=== PATIENT | male | born 1945 | race Caucasian/White ===

== ENCOUNTER → 2016-12-14 | Outpatient (CLI) | payer OTHER ==
[~2016-12-14] MED LIST: ASPI81TA28 PO; CIPR-255 PO; CLOP1TAB5 PO; FINA5TAB PO; FLM4 PO; FLUT0.0529; INSDGI SC; INSDGI SQ; IPRA0.037 NAE; LPT40 PO; LSN20 PO; METF1TAB53 PO; METO1TAB66 PO; MULTCHW PO; MXZC25 PO; OMEP40CA PO; OMEP40CA41 PO; OXYC-57 PO
[2016-12-14 13:05] LABS: BLOOD UREA NITROGEN 20 mg/dl (7-18); CALCIUM 8.7 mg/dl (8.5-10.1); CARBON DIOXIDE 25 mmol/L (21-32); CHLORIDE 105 mmol/L (98-107); CHOLESTEROL 135 mg/dl (0-200); GLUCOSE 117 mg/dl (70-99); POTASSIUM 4.2 mmol/L (3.5-5.1); SODIUM 140 mmol/L (136-145); TRIGLYCERIDES 114 mg/dl (0-150); VERY LOW DENSITY LIPOPROT CALC 23 mg/dl
[2016-12-14 13:08] LABS: CHOLESTEROL/HDL RATIO 3.1; HDL CHOLESTEROL 43 mg/dl
[2016-12-14 13:29] LABS: ESTIMATED AVERAGE GLUCOSE 160 mg/dl; HA1C FLAG Normal (Normal)
[2016-12-14 14:00] LABS: RATIO 256.9 mcg/mg (0-30.0)
== END | disposition home or self-care (01) ==
LOC: C.LABSPEC 12:25
PROVIDERS: ATTEND Internal Medicine
DX: E66.09 Other obesity due to excess calories (principal); E78.5 Hyperlipidemia, unspecified; I25.10 Atherosclerotic heart disease of native coronary artery without angina pectoris; E11.65 Type 2 diabetes mellitus with hyperglycemia; I10 Essential (primary) hypertension

== ENCOUNTER → 2017-01-09 | Outpatient (CLI) | payer OTHER | END | disposition home or self-care (01) | LOC: C.LABSPEC 18:07 | PROVIDERS: ATTEND Urology | DX: N40.1 Benign prostatic hyperplasia with lower urinary tract symptoms (principal) ==

== ENCOUNTER 2017-01-14 18:19 | Emergency (ER) | payer OTHER ==
[~2017-01-14] VITALS: Ht 182.9 cm; Wt 126.7 kg
[~2017-01-14 18:19] MED LIST changes: -OMEP40CA41 PO
[2017-01-14 18:24] VITALS: BP 133/91; PULSE 73; TEMP 36.8; O2SAT 95; Ht 182.9 cm; Wt 126.7 kg
[2017-01-14] MEDS ORDERED: OXYCODONE HCL IR 5 MG TAB (IMMEDIATE RELEASE) PO STA (18:26)
--- NOTE | 2017-01-14 18:29 | EMERGENCY ROOM VISIT NOTE ---
History Report prepared by Jefry: Mani Fowler Under the Supervision of: Dr. Roly Potter D.O. First contact with patient: 18:20 Chief Complaint: KNEEPAIN Stated Complaint: KNEE PAIN, ANKLE NUMBNESS, FALL History of Present Illness The patient is a 71 year old male who presents to the Emergency Room with complaints of right knee pain since a fall earlier this afternoon. The pain is excruciating and has worsened since the initial fall. The pain is exacerbated by movement. The patient also notes increased swelling around the knee. The patient [place] when he slipped and bent the right knee backwards. The patient has had the right knee replaced twice by [facility].. He has had accidents like this before but the pain does not usually last this long. The patient recently had surgery for BPH. He denies tobacco or alcohol use. Source of History: patient Onset: earlier this afternoon Position: knee (right) Symptom Intensity: excruciating Timing: worsening Modifying Factors (Worsening): movement Review of Systems See HPI for pertinent positives & negatives. A total of 10 systems reviewed and were otherwise negative. Past Medical & Surgical Medical Problems: (1) Aseptic Loosening TKR (2) Diabetes mellitus (3) Heart disease (4) Hypertension Family History No pertinent family history Social History Smoking Status: Never Smoker Marital Status: Housing Status: lives with family Current/Historical Medications Scheduled Aspirin (Aspirin Ec), 81 MG PO QAM Atorvastatin (Atorvastatin Calcium), 40 MG PO HS Clopidogrel Bisulfate (Plavix), 1 TAB PO Q2D Finasteride (Proscar), 5 MG PO HS Fluticasone Propionate (Nasal) (Flonase), 2 SPRAY NA QAM Insulin Glargine (Lantus), 45 UNITS SC QAM Insulin Glargine (Lantus), 50 UNITS SC QPM Ipratropium [place] (Nasal) (Atrovent Nasal Jackson), 2 SPRAYS ALANNAH BID Lisinopril (Lisinopril), 20 MG PO BID Metformin Hcl (Glucophage Ext Rel), 1,000 MG PO BID Metoprolol Succinate (Toprol Xl), 50 MG PO BID Multiple Vitamins W/ Minerals (Centrum Silver), 1 CHW PO QAM Omeprazole (Prilosec), 40 MG PO DAILY Triamterene/Hctz (Triamterene/Hctz 37.5-25MG Tab), 1 TAB PO QAM Allergies Coded Allergies: No Known Allergies (Unverified , 01/14/17) Physical Exam Vital Signs Date Time Temp Pulse Resp B/P Pulse Ox O2 Delivery O2 Flow Rate FiO2 01/14/17 18:24 36.8 73 18 133/91 95 Room Air Physical Exam GENERAL: Patient is awake, alert, very anxious appearing and uncomfortable appearing, appears to be in significant pain. EYES: The conjunctivae are clear. The pupils are round and reactive. EARS, NOSE, MOUTH AND THROAT: The nose is without any evidence of any deformity. Mucous membranes are moist tongue is midline NECK: The neck is nontender and supple. RESPIRATORY: Normal respiratory effort is noted there is no evidence of wheezing rhonchi or rales CARDIOVASCULAR: Regular rate and rhythm noted there no murmurs rubs or gallops normal S1 normal S2 GASTROINTESTINAL: The abdomen is soft. Bowel sounds are present in all quadrants. Abdomen is nontender BACK: No midline tenderness or or step-off noted range of motion in flexion extension as well as rotation no signs of muscle spasm noted MUSCULOSKELETAL/EXTREMITIES: Pain with range of motion of the right knee with significant effusion, patient is able to extend the knee off of the bed with significant pain, no anterior posterior instability. SKIN: There is no obvious evidence of any rash. There are no petechiae, pallor or cyanosis noted. Pulses are symmetric in both lower extremities. NEUROLOGIC: Patient is awake alert and oriented x3. Medical Decision & Procedures ER Provider Diagnostic Interpretation: X-ray results as stated below per interpretation by me and the radiologist. RIGHT FEMUR 2 VIEWS ROUTINE CLINICAL HISTORY: fall Right pain COMPARISON: None. DISCUSSION: Moderate degenerative change right hip. Status post total right knee revision. No evidence for fracture. There is no evidence for soft tissue swelling. IMPRESSION: Degenerative and postoperative change. No acute bony abnormality. Electronically signed by: Isaac Moise M.D. 01/14/2017 7:13 PM Dictated Date/Time: 01/14/2017 7:12 PM RIGHT KNEE 1 OR 2 VIEWS ROUTINE CLINICAL HISTORY: fall Right trauma. Pain. COMPARISON: 10/25/2015 DISCUSSION: Evidence for a total right knee revision. Subtle lucency about the prosthetic the level of the tibia. No evidence for well-defined acute bony abnormality. There is no evidence for soft tissue swelling. IMPRESSION: Postoperative change. No acute bony abnormality. Electronically signed by: Isaac Moise M.D. 01/14/2017 7:14 PM Dictated Date/Time: 01/14/2017 7:13 PM Medications Administered Medications (Trade) Dose Ordered Sig/Rosa Maria Route Start Time Stop Time Status Last Admin Dose Admin Oxycodone HCl (Roxicodone Immediate Rel Tab) 5 mg NOW STAT PO 01/14/17 18:26 01/14/17 18:27 DC 01/14/17 18:36 5 MG Ondansetron HCl (ZOFRAN ODT 4MG Home Pack) 1 homepack UD ONCE PO 01/14/17 20:00 01/14/17 20:01 DC 01/14/17 19:55 1 HOMEPACK Oxycodone HCl (Roxicodone Immediate Rel 5MG Home Pack) 1 homepack UD ONCE PO 01/14/17 20:00 01/14/17 20:01 DC 01/14/17 19:55 1 HOMEPACK ED Course 1821: The patient was evaluated in room B3a. A complete history and physical examination were performed. 1825: Oxycodone 5 mg IR PO. 1943: Reassessed the patient. Discussed the findings with him. He verbalized understanding and agreement of the treatment plan. The patient is ready for discharge. 1999: Oxycodone 5 mg IR PO homepack, Zofran Odt 4 mg PO homepack. Medical Decision Prior records reviewed and summarized above. Triage Nursing notes reviewed and agree them. The patient's history was concerning for traumatic injury. Differential diagnosis: Etiologies such as fracture, dislocation, neurovascular compromise, compartment syndrome, soft tissue injury, as well as others were entertained. The patient is a 71-year-old male who presented to the emergency department after a fall injuring his right knee. The patient had significant swelling in the knee but he states this is not necessarily new. He felt that he hyperextended the knee. There is no instability in the anterior posterior plane. There were good pulses found on physical exam distally and he had no significant popliteal tenderness. He did have significant tenderness over the infrapatellar tendon but he was able to extend the knee off of the bed. The patient was not found have any bony abnormality on x-ray. I discussed the patient's radiographic studies with him. Given his symptoms and his physical exam findings I was concerned for an injury to the knee which may not be apparent on plain x-rays. He was placed in a knee immobilizer and crutches. He was treated with pain medication. He was encouraged to rest and avoid any strenuous activity. He was also encouraged to call his primary orthopedic physician in the morning to schedule a follow-up appointment. He was also encouraged to return to the emergency department immediately if symptoms change worsen or the need arises. Impression Primary Impression: Right knee sprain Additional Impression: Knee effusion, right Scribe Attestation The scribe's documentation has been prepared under my direction and personally reviewed by me in its entirety. I confirm that the note above accurately reflects all work, treatment, procedures, and medical decision making performed by me. Departure Information Dispostion Home / Self-Care Referrals Deangelo Estrada M.D. (PCP) Forms HOME CARE DOCUMENTATION FORM, IMPORTANT VISIT INFORMATION Patient Instructions ED Sprain Knee, My [facility] Additional Instructions Continue all medications as prescribed. Continue using Motrin and Tylenol for pain. Continue using the knee immobilizer and the crutches when trying to ambulate. Call your orthopedic physician in the morning to schedule a follow-up appointment. Problem Qualifiers
[2017-01-14] MEDS ORDERED: OMEP40CA41 PO (18:56)
[2017-01-14] MEDS ORDERED: INSDGI SC ×2 (18:56)
--- NOTE | 2017-01-14 19:14 | DIAGNOSTIC IMAGING REPORT ---
RIGHT FEMUR 2 VIEWS ROUTINE CLINICAL HISTORY: fall Right pain COMPARISON: None. DISCUSSION: Moderate degenerative change right hip. Status post total right knee revision. No evidence for fracture. There is no evidence for soft tissue swelling. IMPRESSION: Degenerative and postoperative change. No acute bony abnormality. Electronically signed by: Isaac Moise M.D. 01/14/2017 7:13 PM Dictated Date/Time: 01/14/2017 7:12 PM
--- NOTE | 2017-01-14 19:15 | DIAGNOSTIC IMAGING REPORT ---
RIGHT KNEE 1 OR 2 VIEWS ROUTINE CLINICAL HISTORY: fall Right trauma. Pain. COMPARISON: 10/25/2015 DISCUSSION: Evidence for a total right knee revision. Subtle lucency about the prosthetic the level of the tibia. No evidence for well-defined acute bony abnormality. There is no evidence for soft tissue swelling. IMPRESSION: Postoperative change. No acute bony abnormality. Electronically signed by: Isaac Moise M.D. 01/14/2017 7:14 PM Dictated Date/Time: 01/14/2017 7:13 PM
[2017-01-14] MEDS ORDERED: OXYCODONE IR HOME PACK PO ONE (20:00)
[2017-01-14] MEDS ORDERED: ONDANSETRON HOME PACK 4MG OD TAB PO ONE (20:00)
== END 2017-01-14 20:59 | disposition home or self-care (01) ==
LOC: EDBD 18:19 → C.EDB 18:20
DX: S83.91XA Sprain of unspecified site of right knee, initial encounter (principal); W19.XXXA Unspecified fall, initial encounter; M25.461 Effusion, right knee; E11.9 Type 2 diabetes mellitus without complications; I51.9 Heart disease, unspecified; I10 Essential (primary) hypertension; Z79.82 Long term (current) use of aspirin

== ENCOUNTER → 2017-03-13 | Outpatient (CLI) | payer OTHER ==
[~2017-03-13] MED LIST changes: -CIPR-255 PO; -FLM4 PO; -INSDGI SQ; +METO-452 PO; -METO1TAB66 PO; -OMEP40CA PO; +OMEP40CA41 PO; -OXYC-57 PO
== END | disposition home or self-care (01) ==
LOC: C.LABSPEC 16:51
PROVIDERS: ATTEND Urology
DX: N40.1 Benign prostatic hyperplasia with lower urinary tract symptoms (principal)

== ENCOUNTER → 2017-04-29 | Outpatient (CLI) | payer OTHER ==
[2017-04-29 13:28] LABS: ESTIMATED AVERAGE GLUCOSE 163 mg/dl; HA1C FLAG Normal (Normal)
[2017-04-29 13:36] LABS: BLOOD UREA NITROGEN 22 mg/dl (7-18); BUN/CREATININE RATIO 16.8 (10-20); CARBON DIOXIDE 24 mmol/L (21-32); CHLORIDE 106 mmol/L (98-107); CHOLESTEROL 132 mg/dl (0-200); GLUCOSE 142 mg/dl (70-99); POTASSIUM 4.3 mmol/L (3.5-5.1); SODIUM 139 mmol/L (136-145); TRIGLYCERIDES 216 mg/dl (0-150); VERY LOW DENSITY LIPOPROT CALC 43 mg/dl
[2017-04-29 13:39] LABS: CALCIUM 8.9 mg/dl (8.5-10.1); CHOLESTEROL/HDL RATIO 4.1; HDL CHOLESTEROL 32 mg/dl
== END | disposition home or self-care (01) ==
LOC: C.LABSPEC 12:25
PROVIDERS: ATTEND Internal Medicine
DX: Z00.00 Encounter for general adult medical examination without abnormal findings (principal); E78.5 Hyperlipidemia, unspecified; E66.09 Other obesity due to excess calories; E11.65 Type 2 diabetes mellitus with hyperglycemia; I25.10 Atherosclerotic heart disease of native coronary artery without angina pectoris; I10 Essential (primary) hypertension

== ENCOUNTER → 2017-05-10 | Outpatient (CLI) | payer OTHER | END | disposition home or self-care (01) | LOC: C.LABSPEC 12:01 | PROVIDERS: ATTEND Internal Medicine | DX: E11.65 Type 2 diabetes mellitus with hyperglycemia (principal) ==

== ENCOUNTER → 2017-09-09 | Outpatient (CLI) | payer OTHER ==
[~2017-09-09] MED LIST changes: -METO-452 PO; +METO1TAB66 PO
[2017-09-09 13:37] LABS: ESTIMATED AVERAGE GLUCOSE 151 mg/dl; HA1C FLAG Normal (Normal)
[2017-09-09 16:45] LABS: BLOOD UREA NITROGEN 27 mg/dl (7-18); BUN/CREATININE RATIO 20.7 (10-20); CALCIUM 8.5 mg/dl (8.5-10.1); CARBON DIOXIDE 26 mmol/L (21-32); CHLORIDE 105 mmol/L (98-107); CHOLESTEROL 130 mg/dl (0-200); CREATININE 1.28 mg/dl (0.60-1.40); GLUCOSE 69 mg/dl (70-99); POTASSIUM 4.6 mmol/L (3.5-5.1); SODIUM 138 mmol/L (136-145); TRIGLYCERIDES 162 mg/dl (0-150); VERY LOW DENSITY LIPOPROT CALC 32 mg/dl
[2017-09-09 16:50] LABS: CHOLESTEROL/HDL RATIO 4.1; HDL CHOLESTEROL 32 mg/dl
== END | disposition home or self-care (01) ==
LOC: C.LABSPEC 12:35
PROVIDERS: ATTEND Internal Medicine
DX: I10 Essential (primary) hypertension (principal); E11.65 Type 2 diabetes mellitus with hyperglycemia; I25.10 Atherosclerotic heart disease of native coronary artery without angina pectoris

== ENCOUNTER → 2017-09-11 | Outpatient (CLI) | payer OTHER | END | disposition home or self-care (01) | LOC: C.LABSPEC 12:30 | PROVIDERS: ATTEND Internal Medicine | DX: N40.1 Benign prostatic hyperplasia with lower urinary tract symptoms (principal) ==

== ENCOUNTER → 2018-03-13 | Outpatient (CLI) | payer OTHER ==
[~2018-03-13] MED LIST changes: +METO-452 PO; -METO1TAB66 PO
[2018-03-13 13:18] LABS: HEMOGLOBIN A1C 7.5 % (4.5-5.6)
[2018-03-13 13:43] LABS: BLOOD UREA NITROGEN 27 mg/dl (7-18); CALCIUM 8.8 mg/dl (8.5-10.1); CARBON DIOXIDE 27 mmol/L (21-32); CREATININE 1.56 mg/dl (0.60-1.40); GLUCOSE 90 mg/dl (70-99); POTASSIUM 4.4 mmol/L (3.5-5.1); SODIUM 137 mmol/L (136-145)
[2018-03-13 13:47] LABS: CHOLESTEROL 116 mg/dl (0-200); LDL CHOLESTEROL (DIRECT) 76 mg/dl
== END | disposition home or self-care (01) ==
LOC: C.LABSPEC 12:37
PROVIDERS: ATTEND Internal Medicine
DX: Z00.00 Encounter for general adult medical examination without abnormal findings (principal); I10 Essential (primary) hypertension; I25.10 Atherosclerotic heart disease of native coronary artery without angina pectoris; E11.65 Type 2 diabetes mellitus with hyperglycemia

== ENCOUNTER → 2018-06-12 | Outpatient (CLI) | payer OTHER ==
[~2018-06-12] MED LIST changes: +LISI-726 PO; -LSN20 PO
== END | disposition home or self-care (01) ==
LOC: C.PATHSPEC 17:34
PROVIDERS: ATTEND Plastic Surgery
DX: L98.9 Disorder of the skin and subcutaneous tissue, unspecified (principal)

== ENCOUNTER → 2018-06-27 | Outpatient (CLI) | payer OTHER | END | disposition home or self-care (01) | LOC: C.LABSPEC 16:46 | PROVIDERS: ATTEND Plastic Surgery | DX: S41.001A Unspecified open wound of right shoulder, initial encounter (principal); X58.XXXA Exposure to other specified factors, initial encounter ==

== ENCOUNTER → 2018-07-21 | Outpatient (CLI) | payer OTHER ==
[2018-07-21 14:02] LABS: HEMOGLOBIN A1C 7.7 % (4.5-5.6)
[2018-07-21 14:19] LABS: BLOOD UREA NITROGEN 20 mg/dl (7-18); CALCIUM 8.1 mg/dl (8.5-10.1); CARBON DIOXIDE 23 mmol/L (21-32); CHOLESTEROL 128 mg/dl (0-200); CREATININE 1.26 mg/dl (0.60-1.40); GLUCOSE 147 mg/dl (70-99); LDL CHOLESTEROL (DIRECT) 82 mg/dl; POTASSIUM 4.6 mmol/L (3.5-5.1); SODIUM 137 mmol/L (136-145)
== END | disposition home or self-care (01) ==
LOC: C.LABSPEC 12:44
PROVIDERS: ATTEND Internal Medicine
DX: Z00.00 Encounter for general adult medical examination without abnormal findings (principal); E11.65 Type 2 diabetes mellitus with hyperglycemia; I25.10 Atherosclerotic heart disease of native coronary artery without angina pectoris; E66.09 Other obesity due to excess calories

== ENCOUNTER 2022-10-05 10:27 | Inpatient (IN) ==
--- NOTE | 2022-10-05 11:04 | Emergency Department Note ---
Impression & Plan Acute hypoxemic respiratory failure due to COVID-19 ED Provider Note NAME: HOPE BOLDEN AGE: 77 SEX: M : 1945 ARRIVES VIA: Walk-In INFORMANT: Patient, ED PROVIDER(S): Alvino Reina MD Chief Complaint: Cough, COVID HPI: Patient presents with the above symptoms. The patient states that he was symptomatic 2 ago and tested positive for COVID on Saturday. The patient is vaccinated and boosted. The patient was seen here on the and discharged home. No antivirals. Patient states that this morning he did have nausea with associated dry heaves. The patient also did have an episode of vomiting. Patient denies any abdominal pain but has had the nausea. Patient states that he has had primarily dry cough. Occasionally is productive with sputum. Patient is a non-smoker. No leg swelling or calf pain. Patient denies any chest pains but has had some shortness of breath. Patient did take 2 Tylenol this morning. The patient has not taken much else in terms of symptom control. Patient denies any falls or trauma. The patient does complain of a throbbing frontal headache. No numbness tingling or focal weakness. Patient does state that he suffers from dry mouth and this is made it worse. ROS: See HPI for pertinent positives and negatives. A total of 10 systems were revie wed and otherwise negative. Past medical history: See below Surgical history: See below Social history: See below Physical Exam: GENERAL: Fatigued in appearance, nontoxic, wearing a mask. EYE EXAM: Normal conjunctiva. PERRL, no anisocoria and EOM's grossly intact w/o pain. NECK: Supple, no nuchal rigidity, no adenopathy, non-tender. No signs of meningismus. FROM of the neck with good chin to chest and neck extension. No stridor. LUNGS: Clear to auscultation. Normal chest wall mechanics. HEART: NSR, no MRG. ABDOMEN: Abdomen soft, non-tender, normo-active bowel sounds, no masses, no rebound or guarding. BACK: No CVA TTP. SKIN: No rashes and no bruising. UPPER EXTREMITIES: Upper extremities are grossly normal. LOWER EXTREMITIES: Grossly normal, no edema. NEURO EXAM: A&O x3, cranial nerves II-XII grossly intact, normal speech, moves all 4 extremities. No sensory deficits. Differential diagnoses: Infection, dehydration, metabolic abnormality, hypo/hyperglycemia, electrolyte disturbance, anemia, hypoxia, cardiac sources, intracerebral event, toxicologic, neurologic, as well as other pathologies. Course: Patient was seen and evaluated the bedside. Full history physical exam was performed. EKG interpreted by me Normal sinus rhythm, rate of 84, wide QRS, normal axis, right bundle branch block pattern. No significant change from comparison EKG October 01, 2022. Imaging Studies: See Below Cardiac monitoring: An order was placed for continuous cardiac monitoring. The monitor shows a rate of 87 with sinus rhythm. MDM: Patient was seen due to concern for cough weakness and COVID related symptoms. Blood work is obtained along with an EKG troponin chest x-ray. Patient was ordered IV fluids IV Zofran Tessalon Perles as well as albuterol inhaler treatment. Patient did have improvement with cough. The patient has a white count of 15 with mild anemia hemoglobin 11.5. Platelet count is normal with normal kidney function. Troponin is not elevated. Urinalysis does show blood but no infection. EKG with no significant change from prior. Chest x-ray shows interstitial thickening similar to prior. Patient was noted to be hypoxemic at 8687% on room air while the patient was awake. The patient does use CPAP. The patient was placed on 2 L and ordered dexamethasone. I did speak the on-call hospitalist Autumn Trinh PA-C and the patient was admitted by Dr. Buck. Critical Care: I have personally spent 37 minutes of critical care time in direct management of this patient. This includes bedside care, interpretation of diagnostic studies, and testing, discussion with consultants, patient, and family members, and other require inpatient management activities. This 37 minutes is in excess of all separately billable procedures. Past Med/Surg History Medical History Acid reflux CAD (coronary artery disease) Diabetes Dyslipidemia Enlarged prostate SQUAXIN (hard of hearing) HTN (hypertension) BORDERLINE Presence of drug coated stent in LAD coronary artery PT NOT SURE IF DRUG COATED Surgical History History of back surgery History of cataract surgery History of colonoscopy History of heart artery stent - [facility] History of hernia repair History of repair of rotator cuff PT NOT SURE History of total right knee replacement X2 S/P lumbar laminectomy Family History Other Coronary heart disease Social History Smoking Status: Never smoker Second Hand Exposure: No; Hx Alcohol Use: No Hx Substance Use: No Preferred Language: Spanish Communication Ability: Effective 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 Beliefs That Will Affect Care: None marital status: Current Living Situation: Spouse current occupational status: retired Feels Safe at Home: Yes Safety Concerns: Feels Safe At This Time Assistive Devices: BiPap and Glasses Assistive Devices Comment: reading glasses, Allergies Allergies Allergy/AdvReac Type Severity Reaction Status Date / Time No Known Allergies Allergy Verified 10/01/22 20:37 Home Meds Home Medications Medication Instructions Recorded Confirmed atorvastatin 40 mg tablet 40 mg PO QPM #30 tabs 09/02/19 10/05/22 lisinopril 20 mg tablet 20 mg PO BID #180 tabs 09/02/19 10/05/22 metformin 1,000 mg tablet 1,000 mg PO BID 09/02/19 10/05/22 metoprolol succinate 50 mg 50 mg PO BID 09/02/19 10/05/22 tablet,extended release 24 hr psyllium husk 0.4 gram capsule 0.4 g PO DAILY 05/22/21 10/05/22 (Metamucil) docusate sodium 100 mg capsule 100 mg PO BID 12/22/21 10/05/22 (Stool Softener) furosemide 40 mg tablet 40 mg PO QAM 12/22/21 10/05/22 insulin glargine 100 unit/mL See Rx Instructions subcut UD 01/31/22 10/05/22 subcutaneous solution pantoprazole 20 mg tablet,delayed 20 mg PO DAILY 07/18/22 10/05/22 release aspirin 81 mg tablet,delayed 81 mg PO DAILY 10/01/22 10/05/22 release dulaglutide 0.75 mg/0.5 mL 0.75 mg subcut WK 10/01/22 10/05/22 subcutaneous pen injector (Trulicity) famotidine 20 mg tablet 20 mg PO BID 10/01/22 10/05/22 ferrous sulfate 325 mg (65 mg 325 mg PO Q OTHER DAY 10/01/22 10/05/22 iron) tablet ipratropium bromide 21 mcg (0.03 2 spray intranasal BID 10/01/22 10/05/22 %) nasal spray lhwbptoagonr-yvbssnqm-brgeho tablet 1 tab PO DAILY 10/01/22 10/05/22 niacin 500 mg capsule,extended 500 mg PO DAILY 10/01/22 10/05/22 release saliva substitute combo no.9 1 ea PO DIRECTED PRN Dry Mouth 10/01/22 10/05/22 (Biotene Dry Mouth Oral Rinse mouthwash) tamsulosin 0.4 mg capsule 0.4 mg PO DAILY 10/05/22 10/05/22 Previous Rx's Medication Instructions Recorded azelastine 137 mcg (0.1 %) nasal 2 spray intranasal BID #60 mL 01/01/22 spray aerosol fluticasone propionate 50 2 spray intranasal DAILY PRN nasal 01/01/22 mcg/actuation nasal congestion #48 grams spray,suspension clopidogrel 75 mg tablet 75 mg PO 2XWK #30 tabs 02/16/22 finasteride 5 mg tablet 5 mg PO DAILY #90 tabs 04/19/22 albuterol sulfate 90 mcg/actuation 2 inha inhalation QID PRN 10/01/22 aerosol inhaler shortness of breath or wheezing #6.7 grams benzonatate 100 mg capsule 100 mg PO TID PRN cough #20 caps 10/01/22 nirmatrelvir 300 mg (150 mg See Rx Instructions PO .COMPLEX 10/01/22 x2)-ritonavir 100 mg tablet,dose #30 tabs pack(EUA) (Paxlovid) trospium 20 mg tablet 20 mg PO BID 90 days #180 tabs 10/01/22 Results & Data (ED) Vital Signs Vital Signs - 24 hr 10/05/22 10:33 10/05/22 10:40 10/05/22 11:12 Temperature 36.7 C Temperature Source Temporal Artery Scan Pulse Rate 87 91 H Pulse Rate [Apical] 81 Pulse Rhythm Regular Pulse Rhythm [Apical] Regular Pulse Strength [Apical] Normal Respiratory Rate 20 22 26 H Respiratory Effort / Characteristics Non-Labored Labored Respiratory Depth Normal Shallow Respiratory Pattern Tachypnea Blood Pressure 188/47 H Blood Pressure [Right Arm] 147/74 H Blood Pressure Mean 94 Blood Pressure Mean [Right Arm] 98 Blood Pressure Position [Right Arm] Lying Pulse Oximetry 95 96 95 Oxygen Delivery Method Room Air Room Air Room Air Oxygen Flow Rate Sepsis Recent Fever Within 48 Hours No Sepsis New/Unexplained Change in Mental Status No Sepsis Action Taken by Nursing No Action Required 10/05/22 11:39 10/05/22 13:00 Temperature Temperature Source Pulse Rate 81 Pulse Rate [Apical] 78 Pulse Rhythm Regular Pulse Rhythm [Apical] Regular Pulse Strength [Apical] Normal Respiratory Rate 18 25 H Respiratory Effort / Characteristics Labored Respiratory Depth Shallow Respiratory Pattern Tachypnea Blood Pressure Blood Pressure [Right Arm] 135/73 Blood Pressure Mean Blood Pressure Mean [Right Arm] 93 Blood Pressure Position [Right Arm] Sitting Pulse Oximetry 94 96 Oxygen Delivery Method Room Air Nasal Cannula Oxygen Flow Rate 2 Sepsis Recent Fever Within 48 Hours Sepsis New/Unexplained Change in Mental Status Sepsis Action Taken by Longterm Medications Current Medication List: was personally reviewed by me Laboratory Data Attestation: I reviewed the patient's lab results. Result diagrams: 10/05/22 10:57 10/05/22 10:57 Lab Results 10/05/22 10/05/22 10/05/22 Range/Units 10:57 10:57 10:57 WBC 15.04 H (4.8-10.8) K/ul RBC 4.21 L (4.63-6.08) M/uL Hgb 11.5 L (14.0-18.0) g/dl Hct 34.4 L (40.1-51.0) % MCV 81.7 (80.0-100.0) fL MCH 27.3 (25.0-34.0) pg MCHC 33.4 (32.0-36.0) g/dL RDW Std Deviation 42.4 (36.4-46.3) fL RDW Coeff of Sherri 14.3 (11.5-14.5) % Plt Count 263 (130-400) K/uL MPV 10.7 (9.4-12.4) fL Immature Gran % (Auto) 0.6 % Neut % (Auto) 85.3 % Lymph % (Auto) 7.6 % Mayes % (Auto) 6.1 % Eos % (Auto) 0.2 % Baso % (Auto) 0.2 % Neut # (Auto) 12.82 H (1.4-6.5) K/uL Lymph # (Auto) 1.15 L (1.2-3.4) K/uL Mayes # (Auto) 0.92 H (0.24-0.82) K/uL Eos # (Auto) 0.03 (0-0.50) K/uL Baso # (Auto) 0.03 (0-0.2) K/uL Immature Gran # (Auto) 0.09 H (0.00-0.02) K/uL Sodium 136 (136-145) mmol/L Potassium 4.0 (3.5-5.1) mmol/L Chloride 102 (98-107) mmol/L Carbon Dioxide 25 (21-32) mmol/L Anion Gap 9 (3-11) BUN 14 (6-23) mg/dl Creatinine 0.93 (0.6-1.4) mg/dl Est Cr Clr Drug Dosing 85.0 ml/min Est GFR ( Amer) 90.8 ml/min Est GFR (Non-Af Amer) 78.4 ml/min BUN/Creatinine Ratio 15.1 (10-20) Glucose 95 (70-99(Fasting)) mg/dl Calcium 8.6 (8.5-10.1) mg/dl Magnesium 1.4 L (1.7-2.4) mg/dl Total Bilirubin 0.7 (0.2-1.0) mg/dl AST 17 (13-39) U/L ALT 16 (7-52) U/L Alkaline Phosphatase 59 (34-104) U/L Troponin I High Sens 19.1 (0-20) pg/ml Total Protein 7.5 (6.0-8.3) gm/dl Albumin 3.7 (3.4-5.0) gm/dl Globulin 3.8 (2.5-4.0) gm/dl Albumin/Globulin Ratio 1.0 (0.9-2) Procalcitonin (0-0.5) ng/ml TSH 0.344 (0.300-4.500) uIu/ml Urine Color Urine Appearance (Clear) Urine pH (4.5-7.5) Ur Specific [place] (1.000-1.030) Urine Protein (Negative) Urine Glucose (UA) (Negative) Urine Ketones (Negative) Urine Blood (Negative) Urine Nitrite (Negative) Urine Bilirubin (Negative) Urine Urobilinogen (Negative) Ur Leukocyte Esterase (Negative) Urine WBC (Auto) (0-5) /hpf Urine RBC (Auto) (0-4) /hpf U Hyaline Cast (Auto) (0-5) /lpf U Epithel Cells (Auto) (0-5) /lpf Urine Bacteria (Auto) (Negative) 10/05/22 10/05/22 Range/Units 10:57 13:40 WBC (4.8-10.8) K/ul RBC (4.63-6.08) M/uL Hgb (14.0-18.0) g/dl Hct (40.1-51.0) % MCV (80.0-100.0) fL MCH (25.0-34.0) pg MCHC (32.0-36.0) g/dL RDW Std Deviation (36.4-46.3) fL RDW Coeff of Sherri (11.5-14.5) % Plt Count (130-400) K/uL MPV (9.4-12.4) fL Immature Gran % (Auto) % Neut % (Auto) % Lymph % (Auto) % Mayes % (Auto) % Eos % (Auto) % Baso % (Auto) % Neut # (Auto) (1.4-6.5) K/uL Lymph # (Auto) (1.2-3.4) K/uL Mayes # (Auto) (0.24-0.82) K/uL Eos # (Auto) (0-0.50) K/uL Baso # (Auto) (0-0.2) K/uL Immature Gran # (Auto) (0.00-0.02) K/uL Sodium (136-145) mmol/L Potassium (3.5-5.1) mmol/L Chloride (98-107) mmol/L Carbon Dioxide (21-32) mmol/L Anion Gap (3-11) BUN (6-23) mg/dl Creatinine (0.6-1.4) mg/dl Est Cr Clr Drug Dosing ml/min Est GFR ( Amer) ml/min Est GFR (Non-Af Amer) ml/min BUN/Creatinine Ratio (10-20) Glucose (70-99(Fasting)) mg/dl Calcium (8.5-10.1) mg/dl Magnesium (1.7-2.4) mg/dl Total Bilirubin (0.2-1.0) mg/dl AST (13-39) U/L ALT (7-52) U/L Alkaline Phosphatase (34-104) U/L Troponin I High Sens (0-20) pg/ml Total Protein (6.0-8.3) gm/dl Albumin (3.4-5.0) gm/dl Globulin (2.5-4.0) gm/dl Albumin/Globulin Ratio (0.9-2) Procalcitonin 0.06 (0-0.5) ng/ml TSH (0.300-4.500) uIu/ml Urine Color Yellow Urine Appearance Clear (Clear) Urine pH 7.5 (4.5-7.5) Ur Specific [place] 1.010 (1.000-1.030) Urine Protein Negative (Negative) Urine Glucose (UA) Negative (Negative) Urine Ketones Negative (Negative) Urine Blood 1+ H (Negative) Urine Nitrite Negative (Negative) Urine Bilirubin Negative (Negative) Urine Urobilinogen Negative (Negative) Ur Leukocyte Esterase Negative (Negative) Urine WBC (Auto) 1-5 (0-5) /hpf Urine RBC (Auto) 5-10 H (0-4) /hpf U Hyaline Cast (Auto) 0 (0-5) /lpf U Epithel Cells (Auto) 0-5 (0-5) /lpf Urine Bacteria (Auto) Negative (Negative) Administered Medications Discontinued Medications Albuterol (Albuterol Hfa 8 Gm Inhaler) 2 puffs INH NOW ONE Stop: 10/05/22 11:21 Last Admin: 10/05/22 11:50 Dose: 2 puffs Documented By: RSL Benzonatate (Benzonatate 100 Mg Capsule) 100 mg PO NOW ONE Stop: 10/05/22 11:21 Last Admin: 10/05/22 11:50 Dose: 100 mg Documented By: RSL Dexamethasone Sodium Phosphate (DexamethasonePf 10 Mg/Ml Vial) 6 mg IV NOW ONE Stop: 10/05/22 13:25 Last Admin: 10/05/22 13:32 Dose: 6 mg Documented By: RSL Guaifenesin/Codeine Phosphate (Guaifenesin/Codeine 100mg/10mg 5ml Udc) 10 ml PO NOW STA Stop: 10/05/22 15:27 Last Admin: 10/05/22 16:24 Dose: 10 ml Documented By: RSJocelin Sodium Chloride (Nss 1000ml) 1,000 mls @ 999 mls/hr IV .Q1H1M SCOTT Stop: 10/05/22 12:30 Last Infusion: 10/05/22 12:46 Dose: 0 mls/hr Documented By: Admin: 10/05/22 11:51 Dose: 999 mls/hr Documented By: RSL Ondansetron HCl (Ondansetron Inj 2 Mg/Ml 2 Ml Vial) 4 mg IV NOW STA Stop: 10/05/22 11:20 Last Admin: 10/05/22 11:50 Dose: 4 mg Documented By: RSL Imaging Data Radiologist's Impression: Chest X-Ray 10/05/22 11:19 SINGLE VIEW CHEST CLINICAL HISTORY: Cough and illness. FINDINGS: An AP, portable, upright chest radiograph is compared to study dated 10/01/2022. The heart is enlarged noting atherosclerotic calcification of the thoracic aorta. The pulmonary vasculature is noncongested. Interstitial thickening and mild opacities are present at both lung bases. This suggests an infectious/inflammatory pneumonitis. No large pleural effusion or pneumothorax is seen. The skeletal structures are osteopenic. The bony thorax is grossly intact. IMPRESSION: Bibasilar interstitial thickening with mild airspace opacities is similar to previous. This suggests an infectious pneumonitis. Clinical correlation will be required. ACT 112: Negative or not required by law. Electronically signed by: Blue Kahn M.D. 10/05/2022 11:36 AM Discharge Plan Visit Data Chief Complaint: Illness Stated Complaint: COVID POS, SOB, COUGH ED Provider: Alvino Reina Discharge Problem: Acute hypoxemic respiratory failure due to COVID-19 Patient Disposition: Admitted As Inpatient Discharge Instructions Interventions: ED Discharge Assessment Last Done: 10/05/22 18:10
[2022-10-05] MEDS ORDERED: ONDANSETRON INJ 2 MG/ML 2 ML VIAL IV STA (11:19)
[2022-10-05] MEDS ORDERED: ALBUTEROL HFA 8 GM INHALER INH ONE (11:20)
[2022-10-05] MEDS ORDERED: BENZONATATE 100 MG CAPSULE PO ONE (11:20)
[2022-10-05 11:27] LABS: Basophils # (auto) 0.03 K/uL (0-0.2); Basophils % (auto) 0.2 %; Eosinophils # (auto) 0.03 K/uL (0-0.50); Eosinophils % (auto) 0.2 %; Hematocrit (blood only) 34.4 % (40.1-51.0); Hemoglobin 11.5 g/dl (14.0-18.0); Immature Granulocytes # (auto) 0.09 K/uL (0.00-0.02); Immature Granulocytes % (auto) 0.6 %; Lymphocytes # (auto) 1.15 K/uL (1.2-3.4); Lymphocytes % (auto) 7.6 %; Mean Corpuscular Hemoglobin 27.3 pg (25.0-34.0); Mean Corpuscular Hgb Conc 33.4 g/dL (32.0-36.0); Mean Corpuscular Volume 81.7 fL (80.0-100.0); Mean Platelet Volume 10.7 fL (9.4-12.4); Monocytes # (auto) 0.92 K/uL (0.24-0.82); Monocytes % (auto) 6.1 %; Neutrophils # (auto) 12.82 K/uL (1.4-6.5); Neutrophils % (auto) 85.3 %; Platelet Count 263 K/uL (130-400); RDW Coefficient of Variation 14.3 % (11.5-14.5); RDW Standard Deviation 42.4 fL (36.4-46.3); Red Blood Count 4.21 M/uL (4.63-6.08); White Blood Count 15.04 K/ul (4.8-10.8)
[2022-10-05] MEDS ORDERED: SODIUM CHLORIDE 0.9% 1000ML 1,000 ML IV SCH (11:30)
--- NOTE | 2022-10-05 11:37 | XRay Report ---
SINGLE VIEW CHEST CLINICAL HISTORY: Cough and illness. FINDINGS: An AP, portable, upright chest radiograph is compared to study dated 10/01/2022. The heart i s enlarged noting atherosclerotic calcification of the thoracic aorta. The pulmonary vasculature is n oncongested. Interstitial thickening and mild opacities are present at both lung bases. This suggests an infectious/inflammatory pneumonitis. No large pleural effusion or pneumothorax is seen. The skele jory structures are osteopenic. The bony thorax is grossly intact. IMPRESSION: Bibasilar interstitial thickening with mild airspace opacities is similar to previous. Th is suggests an infectious pneumonitis. Clinical correlation will be required. ACT 112: Negative or not required by law. Electronically signed by: Blue Kahn M.D. 10/05/2022 11:36 AM
[2022-10-05 11:54] LABS: Troponin I High Sensitivity 19.1 pg/ml (0-20)
[2022-10-05 12:13] LABS: Albumin Level 3.7 gm/dl (3.4-5.0); BUN Creatinine Ratio 15.1 (10-20); Bilirubin,Total 0.7 mg/dl (0.2-1.0); Calcium 8.6 mg/dl (8.5-10.1); Est GFR (African American) 90.8 ml/min; Est GFR (Non-African American) 78.4 ml/min; Globulin 3.8 gm/dl (2.5-4.0); Magnesium 1.4 mg/dl (1.7-2.4); Total Protein 7.5 gm/dl (6.0-8.3)
[2022-10-05] MEDS ORDERED: dexAMETHasone**PF** 10 MG/ML VIAL IV ONE (13:24)
[2022-10-05 13:53] LABS: Appearance Urine Clear (Clear); Bacteria Urine Automated Negative (Negative); Bilirubin Urine Negative (Negative); Blood Urine 1+ (Negative); Cast Urine Automated 0 /lpf (0-5); Color Urine Yellow; Epithelial Cell Urine Auto 0-5 /lpf (0-5); Glucose Urine UA Negative (Negative); Ketones Urine Negative (Negative); Leukocyte Esterase Urine Negative (Negative); Nitrite Urine Negative (Negative); Protein Urine Negative (Negative); Urobilinogen Urine Negative (Negative); pH Urine 7.5 (4.5-7.5)
--- NOTE | 2022-10-05 13:53 | History & Physical Report ---
Date of Service October 05, 2022 Assessment & Plan (1) Acute respiratory failure with hypoxia: (2) Pneumonia due to COVID-19 virus: (3) Obstructive sleep apnea: Plan: This is a 77-year-old male with PMHx of DM type II, HTN, ischemic cardiomyopathy, polycythemia, GERD, JOSE LUIS on CPAP, morbid obesity who presents to the hospital with worsening shortness of breath. - Admit to tele - COVID-19 positive , negative rsv and flu - Procalcitonin pending, if elevated then will consider addition of antibiotics with azithromycin, ceftriaxone - WBC = 15, Lymphocytes 1.15, neutrophils 12.82 - CXR reviewed: showing interstitial pneumonitis - O2 sats improved with 2 L via NC, currently 96% on 2L, does not wear any supplemental O2 at baseline - Decadron 6 mg IV daily. Patient has been on Paxlovid x 4 days, no further antiviral at this time. (4) Obesity (BMI 30-39.9): Plan: - BMI of 37.9, diet and exercise be encouraged throughout hospital stay and on discharge (5) Diabetes mellitus: Plan: - Start the patient on Lantus 60 mg twice daily, sliding scale coverage,-- home dosing of Lantus 80 U QAM and 55 U QPM, metformin 100 mg BID and Trulicity weekly - last A1c was greater than 7, repeat with a.m. labs - Glucose on admission is 95, likely to significantly elevate with being on dexamethasone, glycemic pharmacy consultation (6) Heart disease: (7) Hypertension: (8) Ischemic cardiomyopathy: (9) Hypomagnesemia: Plan: - Continue on Plavix twice per week, metoprolol succinate 50 mg BID, lisinopril 20 mg BID, lasix 40 mg QAM - BP and HR currently stable - Replace mag with 1g IV with since 1.4 on admission DVT ppx: - teds, scds, Lovenox 40 mg Q12H CODE: Full code Dispo: From home, likely to remain in the hospital x 1-2 days History of Present Illness Chief Complaint: Shortness of breath Primary Care Provider: Eliz Davey MD This is a 77-year-old male with PMHx of DM type II, HTN, ischemic c ardiomyopathy, polycythemia, GERD, JOSE LUIS on CPAP, morbid obesity who presents to the hospital with worsening shortness of breath. He was traveling two weekends ago to [place] for a wedding (Sep 23) with his , 2 daughters and and grandson; since returning his grandson in law was found to have Covid and they have all gotten sick. About 12 days ago, on Saturday he started with symptoms of an upper head cold, and then by (09/27) things progressed. He took a home test on 09/29 which was positive, as well as his whom lives with him. He was to the ER on Monday 10/01 for feeling achy, weak, shortness of breath and cough with thick nasty sputum production, but was not hypoxic at that time. Upon discharge from the ER he was prescribed tylenol, albuterol inhaler, and Paxlovid by the ER and has been taking these as instructed. Today he is found to have sats at 84% on room air with walking to the bathroom. He has had a very bad headache since Saturday and feels coughing makes it worse. He feels wheezy. He wears a CPAP HS but does not normally require supplemental O2. He hasn't been able to wear it at all this week because of issues with breathing at night. Admits to having a very dry mouth all the time and feels this is worse in the past week. He was nauseous and threw up once today. Denies fever, chills or sweats. + COVID, negative flu and RSV. Maintaining sats at 96% on 2 L via NC. Given 1 L NSS in the ER. Dexamethasone 6 mg IV. Allergies Allergy/AdvReac Type Severity Reaction Status Date / Time No Known Allergies Allergy Verified 10/01/22 20:37 Home Medications Medication Instructions Recorded Confirmed Type atorvastatin 40 mg tablet 40 mg PO QPM #30 tabs 09/02/19 10/05/22 History lisinopril 20 mg tablet 20 mg PO BID #180 tabs 09/02/19 10/05/22 History metformin 1,000 mg tablet 1,000 mg PO BID 09/02/19 10/05/22 History metoprolol succinate 50 mg 50 mg PO BID 09/02/19 10/05/22 History tablet,extended release 24 hr psyllium husk 0.4 gram capsule 0.4 g PO DAILY 05/22/21 10/05/22 History (Metamucil) docusate sodium 100 mg capsule 100 mg PO BID 12/22/21 10/05/22 History (Stool Softener) furosemide 40 mg tablet 40 mg PO QAM 12/22/21 10/05/22 History azelastine 137 mcg (0.1 %) nasal 2 spray intranasal BID #60 mL 01/01/22 10/05/22 Rx spray aerosol fluticasone propionate 50 2 spray intranasal DAILY PRN nasal 01/01/22 10/05/22 Rx mcg/actuation nasal congestion #48 grams spray,suspension insulin glargine 100 unit/mL See Rx Instructions subcut UD 01/31/22 10/05/22 History subcutaneous solution clopidogrel 75 mg tablet 75 mg PO 2XWK #30 tabs 02/16/22 10/05/22 Rx finasteride 5 mg tablet 5 mg PO DAILY #90 tabs 04/19/22 10/05/22 Rx pantoprazole 20 mg tablet,delayed 20 mg PO DAILY 07/18/22 10/05/22 History release albuterol sulfate 90 mcg/actuation 2 inha inhalation QID PRN 10/01/22 10/05/22 Rx aerosol inhaler shortness of breath or wheezing #6.7 grams aspirin 81 mg tablet,delayed 81 mg PO DAILY 10/01/22 10/05/22 History release benzonatate 100 mg capsule 100 mg PO TID PRN cough #20 caps 10/01/22 10/05/22 Rx dulaglutide 0.75 mg/0.5 mL 0.75 mg subcut WK 10/01/22 10/05/22 History subcutaneous pen injector (Trulicity) famotidine 20 mg tablet 20 mg PO BID 10/01/22 10/05/22 History ferrous sulfate 325 mg (65 mg 325 mg PO Q OTHER DAY 10/01/22 10/05/22 History iron) tablet ipratropium bromide 21 mcg (0.03 2 spray intranasal BID 10/01/22 10/05/22 History %) nasal spray vmskcxipiqyj-ziendiqe-uhwhuv tablet 1 tab PO DAILY 10/01/22 10/05/22 History niacin 500 mg capsule,extended 500 mg PO DAILY 10/01/22 10/05/22 History release nirmatrelvir 300 mg (150 mg See Rx Instructions PO .COMPLEX 10/01/22 10/05/22 Rx x2)-ritonavir 100 mg tablet,dose #30 tabs pack(EUA) (Paxlovid) saliva substitute combo no.9 1 ea PO DIRECTED PRN Dry Mouth 10/01/22 10/05/22 History (Biotene Dry Mouth Oral Rinse mouthwash) trospium 20 mg tablet 20 mg PO BID 90 days #180 tabs 10/01/22 10/05/22 Rx tamsulosin 0.4 mg capsule 0.4 mg PO DAILY 10/05/22 10/05/22 History Past Med/Surg History Medical History Acid reflux CAD (coronary artery disease) Diabetes Dyslipidemia Enlarged prostate [place] (hard of hearing) HTN (hypertension) BORDERLINE Presence of drug coated stent in [place] coronary artery PT NOT SURE IF DRUG COATED Surgical History History of back surgery History of cataract surgery History of colonoscopy History of heart artery stent X1 - [facility] History of hernia repair History of repair of rotator cuff PT NOT SURE History of total right knee replacement X2 S/P lumbar laminectomy Family History Other Coronary heart disease Social History Smoking Status: Never smoker Second Hand Exposure: No; Hx Alcohol Use: No Hx Substance Use: No Preferred Language: Georgian Communication Ability: Effective 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 Beliefs That Will Affect Care: None marital status: Current Living Situation: Spouse current occupational status: retired Feels Safe at Home: Yes Assistive Devices: Glasses Review of Systems Review of Systems: Constitutional: No fever, sweats or chills Eyes: No diplopia, no worsening or blurred vision ENT: normal hearing, no trouble swallowing Respiratory: As per HPI, + cough, +sputum, + dyspnea on exertion but not at rest Cardiovascular: No chest pain, tightness or palpitations Abdomen: No pain, +nausea, + vomiting, no diarrhea, occasional constipation but last BM was this morning Musculoskeletal: No joint pain, calf pain, swelling Neurologic: + generalized weakness, numbness/tingling, or balance problems Psychiatric: No anxiety or depression Skin: No rash or itch Physical Exam Physical Exam: General: awake, alert, + mild distress, + fatigued, + appears uncomfortable Head: Normocephalic, atraumatic ENT: PERRL, EOMI, no pharyngeal exudate, mucous membranes dry Chest: + Diminished breath sounds throughout, + crackles at bases bilaterally, on 2L via NC with sats at 96%, no adventitious breath sounds Cardiac: Regular rate and rhythm, no murmur, no JVD, normal peripheral pulses, good capillary refill Abdominal: NABS x 4 quadrants, soft, nondistended, nontender to palpation, no rebound or guarding Extremities: Normal inspection, no peripheral edema or erythema, calfs nontender to palpation Skin: appears thacker, scar tissue specifically over previous TKA is white Psych: Normal mood and affect Neuro: AAO x 3, strength intact bilaterally and rated 5/5, no motor deficits, speech is clear, no peripheral sensory deficits Results & Data Results & Data ([facility]) Vital Signs (Past 12 Hours) Vital Signs Temp Pulse Pulse Resp BP BP Pulse Ox 10/05/22 13:00 78 25 H 135/73 96 10/05/22 11:39 81 18 94 10/05/22 11:12 81 26 H 147/74 H 95 10/05/22 10:40 91 H 22 96 10/05/22 10:33 36.7 C 87 20 188/47 H 95 O2 Del Method O2 Flow Rate 10/05/22 13:00 Nasal Cannula 2 10/05/22 11:39 Room Air 10/05/22 11:12 Room Air 10/05/22 10:40 Room Air 10/05/22 10:33 Room Air Laboratory Results 10/05/22 10/05/22 10/05/22 10:57 10:57 10:57 WBC 15.04 H RBC 4.21 L Hgb 11.5 L Hct 34.4 L MCV 81.7 MCH 27.3 MCHC 33.4 RDW Std Deviation 42.4 RDW Coeff of Sherri 14.3 Plt Count 263 MPV 10.7 Immature Gran % (Auto) 0.6 Neut % (Auto) 85.3 Lymph % (Auto) 7.6 Bennett % (Auto) 6.1 Eos % (Auto) 0.2 Baso % (Auto) 0.2 Neut # (Auto) 12.82 H Lymph # (Auto) 1.15 L Bennett # (Auto) 0.92 H Eos # (Auto) 0.03 Baso # (Auto) 0.03 Immature Gran # (Auto) 0.09 H Sodium 136 Potassium 4.0 Chloride 102 Carbon Dioxide 25 Anion Gap 9 BUN 14 Creatinine 0.93 Est Cr Clr Drug Dosing 85.0 Est GFR ( Amer) 90.8 Est GFR (Non-Af Amer) 78.4 BUN/Creatinine Ratio 15.1 Glucose 95 Calcium 8.6 Magnesium 1.4 L Total Bilirubin 0.7 AST 17 ALT 16 Alkaline Phosphatase 59 Troponin I High Sens 19.1 Total Protein 7.5 Albumin 3.7 Globulin 3.8 Albumin/Globulin Ratio 1.0 TSH 0.344 Diagnostic Findings Chest X-Ray 10/05/22 11:19 SINGLE VIEW CHEST CLINICAL HISTORY: Cough and illness. FINDINGS: An AP, portable, upright chest radiograph is compared to study dated 10/01/2022. The heart is enlarged noting atherosclerotic calcification of the thoracic aorta. The pulmonary vasculature is noncongested. Interstitial thickening and mild opacities are present at both lung bases. This suggests an infectious/inflammatory pneumonitis. No large pleural effusion or pneumothorax is seen. The skeletal structures are osteopenic. The bony thorax is grossly intact. IMPRESSION: Bibasilar interstitial thickening with mild airspace opacities is similar to previous. This suggests an infectious pneumonitis. Clinical correlation will be required. ACT 112: Negative or not required by law. Electronically signed by: Blue Kahn M.D. 10/05/2022 11:36 AM ECG Additional Comments: 05-OCT-2022 10:48:20 [facility]-EDSTAT ROUTINE RETRIEVAL Normal sinus rhythm Right bundle branch block Abnormal ECG When compared with ECG of 01-OCT-2022 19:31, No significant change was found 25mm/[id number] 241CID: [id number] by: SELF Unconfirmed Vent. rate 84 BPM SC interval 144 ms QRS duration 126 ms QT/QTc 408/482 ms Code Status & VTE Plan Code Status FULL code - discussed with the patient at bedside Supervising Physician Co-Signing Physician Notes I have seen and examined the patient and have discussed the case with the provider above. I agree with the assessment and plan as stated with the following exceptions. Mr. Riddle is here with worsening shortness of breath and congestion mostly reporting a severe cough that is keeping him up at night. Other family members are improving but he has not been. He is a diabetic with heart disease and was vaccinated with two doses of the covid vaccination. He denies chest pain, GI issues or other symptoms other than those reported above. On physical he is hemodynamically stable and afebrile and is not working to breathe. Lungs are clear to auscultation throughout and heart exam is normal with no swelling or edema noted. Abdomen is soft, protuberant, NTND. Workup reveals White blood cell count was 15,000, H&H was 11.5/34.4 which is around his baseline. Platelets were normal. BMP including electrolytes and kidney function is within normal limits aside from magnesium which was 1.4. The patient reports not eating anything today but has been taking his long-acting insulin at home. Procalcitonin is 0.06. TSH is within normal limits at 0.34. Urinalysis reveals microscopic hematuria and no evidence of infection. On 10/01 he was tested for influenza and RSV which were negative at that time. A chest x-ray reveals bibasilar airspace opacities. In the ER he was given 1 L of fluid, dexamethasone 6 mg IV and other supportive treatments. Overall this is a 77-year-old man presents with COVID-pneumonia causing hypoxia. He has been on Paxil bid for several days. At this time we will not institute any additional antivirals and will continue with steroid therapy and supportive care. We will monitor progress on telemetry. Goal for discharge would be a resolution of hypoxia. Holding additional fluids and restarting patient's Lasix in the morning. No evidence of heart failure exacerbation is noted. DO Heber
[2022-10-05] MEDS ORDERED: guaiFENesin/CODEINE 100MG/10MG 5ML UDC PO STA (15:26)
--- NOTE | 2022-10-05 15:35 | Electrocardiogram Report ---
Test Reason : Blood Pressure : / mmHG Vent. Rate : 084 BPM Atrial Rate : 084 BPM P-R Int : 144 ms QRS Dur : 126 ms QT Int : 408 ms P-R-T Axes : 041 051 -06 degrees QTc Int : 482 ms Normal sinus rhythm Right bundle branch block Abnormal ECG When compared with ECG of 01-OCT-2022 19:31, No significant change was found Confirmed by Roly Andersen ([id number]) on 10/05/2022 3:35:10 PM Referred By: SELF Confirmed By:Roly Andersen
[2022-10-05] MEDS ORDERED: NON-FORMULARY MEDICATION (Saliva Substitute Combo No.9 [Biotene Dry Mouth Oral Rinse] Mout PO PRN (18:05)
[2022-10-05] MEDS ORDERED: CARBOHYDRATES FOR HYPOGLYCEMIA PO PRN (18:05)
[2022-10-05] MEDS ORDERED: ALBUTEROL HFA 8 GM INHALER INH PRN (18:05)
[2022-10-05] MEDS ORDERED: GLUCOSE 10 TAB/TUBE PO PRN (18:05)
[2022-10-05] MEDS ORDERED: FLUTICASONE PROPIONATE NA SPR 16 GM BTL PRN (18:05)
[2022-10-05] MEDS ORDERED: ACETAMINOPHEN 325 MG TAB PO PRN (18:05)
[2022-10-05] MEDS ORDERED: GLUCOSE 40% GEL 15 GM TUBE PO PRN (18:05)
[2022-10-05] MEDS ORDERED: PHARMACY GLYCEMIC MGMT CONSULT PRN (18:05)
[2022-10-05] MEDS ORDERED: DEXTROSE 50% 50 ML SYRINGE IV PRN (18:05)
[2022-10-05] MEDS ORDERED: ONDANSETRON INJ 2 MG/ML 2 ML VIAL IV PRN (18:05)
[2022-10-05] MEDS ORDERED: GLUCAGON FOR INJ 1 MG VIAL SQ PRN (18:05)
[2022-10-05] MEDS ORDERED: MAGNESIUM SULFATE / D5W 1 GM/100 ML BAG IV ONE (19:00)
[2022-10-05] MEDS: FUROSEMIDE 40 MG TAB PO SCH (19:55)
[2022-10-05] MEDS: ENOXAPARIN INJ 40 MG/0.4 ML SYR SQ SCH (19:57)
[2022-10-05] MEDS: AZELASTINE HCL 0.1% NASAL 200 SPRAYS/27,400 MCG BTL SCH (19:59)
[2022-10-05] MEDS: DOCUSATE SODIUM 100 MG CAP PO SCH (20:00)
[2022-10-05] MEDS: ATORVASTATIN 40 MG TAB PO SCH (20:00)
[2022-10-05] MEDS: FAMOTIDINE 20 MG TAB PO SCH (20:00)
[2022-10-05] MEDS ORDERED: PSEUDOEPHEDRINE HCL 30 MG TAB PO PRN (20:00)
[2022-10-05] MEDS: guaiFENesin 600 MG TABCR PO SCH (20:00)
[2022-10-05] MEDS: METOPROLOL SUCC 50MG EXT REL TAB PO SCH (20:00)
[2022-10-05] MEDS: lisinopril 20 MG TAB PO SCH (20:00)
[2022-10-05] MEDS ORDERED: LANTUS PER UNIT CHARGE SQ ONE (21:00)
[2022-10-05] MEDS: INSULIN ASPART PER UNIT SC SCH (21:08)
[2022-10-05] MEDS ORDERED: HYDROcodone/HOMATROPINE SYRUP 5MG/1.5MG 5ML UDP PO PRN (22:53)
[2022-10-06] MEDS: INSULIN ASPART PER UNIT SC SCH ×6 (00:08→20:34)
[2022-10-06] MEDS: BENZONATATE 100 MG CAPSULE PO PRN ×2 (00:15→20:46)
[2022-10-06 07:34] LABS: Hematocrit (blood only) 34.1 % (40.1-51.0); Mean Corpuscular Hemoglobin 27.1 pg (25.0-34.0); Mean Corpuscular Hgb Conc 32.3 g/dL (32.0-36.0); Mean Platelet Volume 10.5 fL (9.4-12.4); Platelet Count 254 K/uL (130-400); RDW Coefficient of Variation 14.2 % (11.5-14.5); RDW Standard Deviation 43.4 fL (36.4-46.3); Red Blood Count 4.06 M/uL (4.63-6.08); White Blood Count 10.74 K/ul (4.8-10.8)
[2022-10-06 07:53] LABS: Calcium 8.5 mg/dl (8.5-10.1); Creatinine Clr Calc Pharmacy 74.6 ml/min; Est GFR (African American) 77.5 ml/min; Est GFR (Non-African American) 66.9 ml/min; Magnesium 1.8 mg/dl (1.7-2.4); Potassium 4.3 mmol/L (3.5-5.1)
--- NOTE | 2022-10-06 07:53 | Electrocardiogram Report ---
Test Reason : Blood Pressure : / mmHG Vent. Rate : 060 BPM Atrial Rate : 060 BPM P-R Int : 142 ms QRS Dur : 136 ms QT Int : 468 ms P-R-T Axes : 062 027 -01 degrees QTc Int : 468 ms Normal sinus rhythm Right bundle branch block Abnormal ECG When compared with ECG of 05-OCT-2022 10:48, No significant change Confirmed by Jordin Bro ([id number]) on 10/06/2022 7:53:05 AM Referred By: Provider Outside Confirmed By:Jordin Bro
[2022-10-06] MEDS: guaiFENesin 600 MG TABCR PO SCH ×2 (08:25→20:30)
[2022-10-06] MEDS: ASPIRIN 81 MG ECTAB PO SCH (08:26)
[2022-10-06] MEDS: DOCUSATE SODIUM 100 MG CAP PO SCH ×2 (08:26→20:29)
[2022-10-06] MEDS: PANTOprazole 40 MG TAB PO SCH (08:26)
[2022-10-06] MEDS: TAMSULOSIN HCL 0.4 MG CAP PO SCH (08:26)
[2022-10-06] MEDS: FUROSEMIDE 40 MG TAB PO SCH (08:27)
[2022-10-06] MEDS: FINASTERIDE 5 MG TAB PO SCH (08:27)
[2022-10-06] MEDS: FAMOTIDINE 20 MG TAB PO SCH ×2 (08:27→20:29)
[2022-10-06] MEDS: METOPROLOL SUCC 50MG EXT REL TAB PO SCH ×2 (08:28→20:29)
[2022-10-06] MEDS: dexAMETHasone 6 MG in SYRINGE 0 ML IV SCH (08:29)
[2022-10-06] MEDS: AZELASTINE HCL 0.1% NASAL 200 SPRAYS/27,400 MCG BTL SCH ×2 (08:30→20:28)
[2022-10-06] MEDS: PSYLLIUM or GUAR GUM FIBER POWDER PACKET PO SCH (08:50)
[2022-10-06] MEDS: ENOXAPARIN INJ 40 MG/0.4 ML SYR SQ SCH ×2 (08:55→20:28)
[2022-10-06] MEDS ORDERED: LANTUS PER UNIT CHARGE SQ ONE (09:00)
[2022-10-06] MEDS ORDERED: CLOPIDOGREL BISULFATE 75 MG TAB PO SCH (09:00)
[2022-10-06 09:12] LABS: Estimated Average Glucose 157 mg/dl; Hemoglobin A1C 7.1 % (4.5-5.6)
[2022-10-06] MEDS: lisinopril 20 MG TAB PO SCH ×2 (09:42→20:30)
[2022-10-06] MEDS ORDERED: dexAMETHasone 6 MG in SYRINGE 0 ML IV SCH (11:00)
--- NOTE | 2022-10-06 13:37 | Pharmacy Report ---
Pharmacy Glycemic Short Note 2 - Date of Service October 06, 2022 - Glycemic Short BSG Results (Last 24 hours): 10/05/22 10/06/22 10/06/22 21:01 00:02 04:00 Glucose POC Glucose 228 H 173 H 160 H 10/06/22 10/06/22 10/06/22 07:12 07:47 11:50 Glucose 162 H POC Glucose 150 H 247 H OUTPATIENT ANTIDIABETIC REGIMEN: * Lantus 75 units SQ qAM + 40 units SQ qPM * Trulicity 0.75 mg SQ weekly * Metformin 1000 mg PO BID * A1c = 7.1 % (10/06/22) ASSESSMENT: * Sloan is 77 yo T2DM admitted with COVID-19, worsening shortness of breath * Hyperglycemia in the setting of active infection and administration of high dose IV steroids * Given that patient requires large doses of Lantus at baseline, will attempt to manage with SQ Lantus + Novolog. Hold off on NPH at this time. * Fasting BSG near goal. Lantus dosed per BSG scale (35-45 units BID) until insulin needs are better determined. * Tighten Novolog orders for post prandial hyperglycemia PLAN FOR INPATIENT GLYCEMIC CONTROL: * Hold outpatient oral diabetes medications * Basal insulin * Lantus 35-45 units SQ BID - 35 units for BSG < 140, 40 units for BSG 140-180, 45 units for BSG > 180 * Bolus insulin * NovoLog per scale ACHS or Q6hrs while NPO * Goal Range: Low 110 mg/dL - High 140 mg/dL * Correction Factor: 12 mg/dL/unit * Nutritional / Prandial insulin per carb ratio of 1 unit per 3 grams CHO consumed
--- NOTE | 2022-10-06 14:57 | Hospitalist Progress Note ---
Date of Service October 06, 2022 Assessment & Plan (1) Acute respiratory failure with hypoxia: Plan: This is a 77-year-old male with PMHx of DM type II, HTN, ischemic cardiomyopathy, polycythemia, GERD, JOSE LUIS on CPAP, morbid obesity who presents to the hospital with worsening shortness of breath. - COVID-19 positive , negative rsv and flu -CRP elevated to 12.24 - Procalcitonin-normal - WBC = 15, Lymphocytes 1.15, neutrophils 12.82 - CXR reviewed: showing interstitial pneumonitis - O2 sats improved with 2 L via NC, currently 96% on 2L, does not wear any supplemental O2 at baseline - Decadron 6 mg IV daily. Patient has been on Paxlovid x 4 days, no further ant iviral at this time. -Clinically much better and has been saturating on room air -Does not have any significant cough and no shortness of breath at rest -We will need to observe for a day or 2 more before discharge (2) Pneumonia due to COVID-19 virus: Plan: As above (3) Obstructive sleep apnea: Plan: Advised to use CPAP as before at home (4) Obesity (BMI 30-39.9): Plan: - BMI of 37.9, diet and exercise be encouraged throughout hospital stay and on discharge (5) Diabetes mellitus: Plan: - Start the patient on Lantus 60 mg twice daily, sliding scale coverage,-- home dosing of Lantus 80 U QAM and 55 U QPM, metformin 100 mg BID and Trulicity weekly - last A1c was greater than 7, repeat with a.m. labs - Glucose on admission is 95, likely to significantly elevate with being on dexamethasone, glycemic pharmacy consultation -Hemoglobin A1c is 7.1 (6) Heart disease: (7) Hypertension: Plan: Remains in the upper side (8) Ischemic cardiomyopathy: (9) Hypomagnesemia: Plan: - Continue on Plavix twice per week, metoprolol succinate 50 mg BID, lisinopril 20 mg BID, lasix 40 mg QAM - BP and HR currently stable - Replace mag with 1g IV with since 1.4 on admission -Corrected at 1.8 as of 10/06/2022 DVT ppx: - teds, scds, Lovenox 40 mg Q12H CODE: Full code Dispo: From home, likely to remain in the hospital x 1-2 days Admission and Anticipated Discharge Date Admission Date: October 05, 2022 Subjective 10/06/2022 The patient was seen and examined in telemetry unit and in the COVID room He has been having cough for the last 6 to 7 days Was in ER about 5 days back and was sent home Condition got worse with increasing shortness of breath and came back to the emergency room Has been saturating normally on room air, complains minimally weak and lethargy, no cough and no phlegm Review of Systems Review of Systems: All systems reviewed and are unremarkable except as noted below Respiratory: No respiratory distress Physical Exam Physical Exam: Lying in bed comfortably Constitutional: well developed, well nourished, + ill appearing and + obese Eyes: PERRL, conjunctivae normal, anicteric sclerae ENMT: external ear and nose normal, oropharynx normal Neck: trachea midline, no thyromegaly Respiratory: no respiratory distress Auscultation: + diminished lung sounds; no crackles and no wheezes Cardiovascular: Rate/Rhythm: regular rate and regular rhythm; not tachycardic Heart Sounds: normal S1 and normal S2; no murmur Extremities: + edema (Trace edema bilaterally) Gastrointestinal (Abdomen): Inspection/Auscultation: normal bowel sounds; abdomen not distended Percussion/Palpation: abdomen soft; abdomen nontender Musculoskeletal: No acute arthritis in any joint Neurologic: normal touch/pain/proprioception and moves all extremities; no focal motor deficits Psychiatric: A+Ox3, euthymic affect Lymphatic: no cervical or axillary lymphadenopathy Results & Data Results & Data ([facility]) Vital Signs (Past 12 Hours) Vital Signs Temp Pulse Pulse Resp BP Pulse Ox O2 Del Method 10/06/22 12:13 37.1 C 67 19 153/79 H 94 Room Air 10/06/22 07:15 Room Air 10/06/22 08:50 93 Room Air 10/06/22 07:56 36.5 C 62 18 159/67 H 97 Nasal Cannula 10/06/22 07:20 51 L 10/06/22 04:09 37 C 60 17 137/70 96 Nasal Cannula O2 Flow Rate 10/06/22 12:13 10/06/22 07:15 10/06/22 08:50 10/06/22 07:56 2 10/06/22 07:20 10/06/22 04:09 2 Laboratory Results Short CBC 10/06/22 Range/Units 07:12 WBC 10.74 (4.8-10.8) K/ul Hgb 11.0 L (14.0-18.0) g/dl Hct 34.1 L (40.1-51.0) % Plt Count 254 (130-400) K/uL BMP 10/06/22 07:12 Sodium 137 Potassium 4.3 Chloride 105 Carbon Dioxide 26 BUN 18 Creatinine 1.06 Glucose 162 H Calcium 8.5 Medications Administered Current Inpatient Medications Acetaminophen (Acetaminophen 325 Mg Tab) 650 mg PO Q4H PRN PRN Reason: Moderate Pain Stop: 11/04/22 18:04 Albuterol (Albuterol Hfa 8 Gm Inhaler) 2 puffs INH Q6R PRN PRN Reason: shortness of breath or wheezing Stop: 11/04/22 18:04 Aspirin (Aspirin 81 Mg Ectab) 81 mg PO DAILY SCOTT Stop: 11/05/22 08:59 Last Admin: 10/06/22 08:26 Dose: 81 mg Atorvastatin Calcium (Atorvastatin 40 Mg Tab) 40 mg PO QPM SCOTT Stop: 11/04/22 20:59 Last Admin: 10/05/22 20:00 Dose: 40 mg Azelastine HCl (Azelastine Hcl 0.1% Nasal 200 Sprays/27,400 Mcg Btl) 2 sprays NA BID SCOTT Stop: 11/04/22 20:59 Last Admin: 10/06/22 08:30 Dose: 2 sprays Benzonatate (Benzonatate 100 Mg Capsule) 100 mg PO TID PRN PRN Reason: cough Stop: 11/04/22 18:04 Last Admin: 10/06/22 00:15 Dose: 100 mg Clopidogrel Bisulfate (Clopidogrel Bisulfate 75 Mg Tab) 75 mg PO TuSa@0900 SCOTT Stop: 11/05/22 08:59 Last Admin: 10/06/22 08:26 Dose: 75 mg Dextrose (Dextrose 50% 50 Ml Syringe) 25 - 50 ml IV UD PRN; Protocol PRN Reason: Hypoglycemia Protocol Stop: 11/04/22 18:04 Docusate Sodium (Docusate Sodium 100 Mg Cap) 100 mg PO BID SCOTT Stop: 11/04/22 20:59 Last Admin: 10/06/22 08:26 Dose: 100 mg Enoxaparin Sodium (Enoxaparin Inj 40 Mg/0.4 Ml Syr) 40 mg SQ Q12H [facility]OTT Stop: 11/04/22 19:59 Last Admin: 10/06/22 08:55 Dose: 40 mg Famotidine (Famotidine 20 Mg Tab) 20 mg PO BID [facility]OTT Stop: 11/04/22 20:59 Last Admin: 10/06/22 08:27 Dose: 20 mg Finasteride (Finasteride 5 Mg Tab) 5 mg PO DAILY [facility]OTT Stop: 11/05/22 08:59 Last Admin: 10/06/22 08:27 Dose: 5 mg Fluticasone Propionate (Fluticasone Propionate Na Spr 16 Gm Btl) 2 sprays NA DAILY PRN PRN Reason: nasal congestion Stop: 11/04/22 18:04 Furosemide (Furosemide 40 Mg Tab) 40 mg PO QAM SCOTT Stop: 11/04/22 18:04 Last Admin: 10/06/22 08:27 Dose: 40 mg Glucagon (Glucagon For Inj 1 Mg Vial) 1 mg SQ UD PRN; Protocol PRN Reason: Hypoglycemia Protocol Stop: 11/04/22 18:04 Glucose (Glucose 40% Gel 15 Gm Tube) 15 - 30 gm PO UD PRN; Protocol PRN Reason: Hypoglycemia Protocol Stop: 11/04/22 18:04 Glucose (Glucose 10 Tab/Tube) 4 - 8 tab PO UD PRN; Protocol PRN Reason: Hypoglycemia Treatment Stop: 11/04/22 18:04 Guaifenesin (Guaifenesin 600 Mg Tabcr) 1,200 mg PO Q12 SCOTT Stop: 11/04/22 20:59 Last Admin: 10/06/22 08:25 Dose: 1,200 mg Hydrocodone Bit/Homatropine Methylb (Hydrocodone/Homatropine Syrup 5mg/1.5mg 5ml Udp) 5 ml PO Q6H PRN PRN Reason: Cough Stop: 10/19/22 22:52 Dexamethasone 6 mg/ Syringe 1.5 mls @ 1 mls/min IV Q24H SCOTT Stop: 11/05/22 08:59 Last Admin: 10/06/22 08:29 Dose: 1 mls/min Insulin Aspart (Insulin Aspart Per Unit) 0 units SC ACHS SCOTT Stop: 11/04/22 20:59 Last Admin: 10/06/22 12:57 Dose: 18 units Insulin Glargine (Lantus Per Unit Charge) 0 units SQ BID [facility]; Protocol Stop: 11/05/22 20:59 Lisinopril (Lisinopril 20 Mg Tab) 20 mg PO BID [facility] Stop: 11/04/22 20:59 Last Admin: 10/06/22 09:42 Dose: 20 mg Metoprolol Succinate (Metoprolol Succ 50mg Ext Rel Tab) 50 mg PO BID [facility] Stop: 11/04/22 20:59 Last Admin: 10/06/22 08:28 Dose: 50 mg Miscellaneous (Trospium 20 Mg: Order Awaiting Action) 1 each N/A BID [facility] Stop: 11/04/22 20:59 Last Admin: 10/06/22 08:38 Dose: Not Given Miscellaneous (Carbohydrates For Hypoglycemia ) 15 - 30 gm PO UD PRN PRN Reason: Hypoglycemia Protocol Stop: 11/04/22 18:04 Miscellaneous Information (Pharmacy Glycemic Mgmt Consult) 1 each N/A UD PRN; Protocol PRN Reason: Consult Stop: 11/04/22 18:04 Ondansetron HCl (Ondansetron Inj 2 Mg/Ml 2 Ml Vial) 4 mg IV Q4H PRN PRN Reason: Nausea And Vomiting Stop: 11/04/22 18:04 Pantoprazole Sodium (Pantoprazole 40 Mg Tab) 40 mg PO DAILY [facility] Stop: 11/05/22 08:59 Last Admin: 10/06/22 08:26 Dose: 40 mg Pseudoephedrine HCl (Pseudoephedrine Hcl 30 Mg Tab) 60 mg PO Q12H PRN PRN Reason: congestion Stop: 11/04/22 19:59 Psyllium Hydrophilic Mucilloid (Psyllium Or Guar Gum Fiber Powder Packet) 1 pkt PO DAILY [facility] Stop: 11/05/22 08:59 Last Admin: 10/06/22 08:50 Dose: 1 pkt Tamsulosin HCl (Tamsulosin Hcl 0.4 Mg Cap) 0.4 mg PO DAILY [facility] Stop: 11/05/22 08:59 Last Admin: 10/06/22 08:26 Dose: 0.4 mg
[2022-10-06] MEDS: ATORVASTATIN 40 MG TAB PO SCH (20:29)
[2022-10-06] MEDS: LANTUS PER UNIT CHARGE SQ SCH (20:36)
[2022-10-07 06:56] LABS: Basophils # (auto) 0.02 K/uL (0-0.2); Basophils % (auto) 0.1 %; Hematocrit (blood only) 32.9 % (40.1-51.0); Hemoglobin 10.8 g/dl (14.0-18.0); Immature Granulocytes # (auto) 0.11 K/uL (0.00-0.02); Immature Granulocytes % (auto) 0.7 %; Lymphocytes # (auto) 1.47 K/uL (1.2-3.4); Lymphocytes % (auto) 9.3 %; Mean Corpuscular Hemoglobin 27.2 pg (25.0-34.0); Mean Corpuscular Hgb Conc 32.8 g/dL (32.0-36.0); Mean Corpuscular Volume 82.9 fL (80.0-100.0); Mean Platelet Volume 10.5 fL (9.4-12.4); Monocytes # (auto) 0.87 K/uL (0.24-0.82); Monocytes % (auto) 5.5 %; Neutrophils % (auto) 84.4 %; Platelet Count 273 K/uL (130-400); RDW Standard Deviation 42.5 fL (36.4-46.3); Red Blood Count 3.97 M/uL (4.63-6.08); White Blood Count 15.87 K/ul (4.8-10.8)
[2022-10-07 07:38] LABS: BUN Creatinine Ratio 29.9 (10-20); C Reactive Protein 6.82 mg/dl (0-0.5); Calcium 8.2 mg/dl (8.5-10.1); Creatinine Clr Calc Pharmacy 81.5 ml/min; Est GFR (African American) 86.3 ml/min; Est GFR (Non-African American) 74.5 ml/min; Magnesium 1.9 mg/dl (1.7-2.4); Potassium 4.2 mmol/L (3.5-5.1)
[2022-10-07] MEDS: INSULIN ASPART PER UNIT SC SCH ×4 (08:23→21:01)
[2022-10-07] MEDS: LANTUS PER UNIT CHARGE SQ SCH ×2 (08:24→21:18)
[2022-10-07] MEDS: INSULIN HUMAN NPH SC SCH (09:08)
[2022-10-07] MEDS: lisinopril 20 MG TAB PO SCH ×2 (09:13→21:10)
[2022-10-07] MEDS: FAMOTIDINE 20 MG TAB PO SCH ×2 (09:14→21:10)
[2022-10-07] MEDS: FUROSEMIDE 40 MG TAB PO SCH (09:14)
[2022-10-07] MEDS: DOCUSATE SODIUM 100 MG CAP PO SCH ×2 (09:14→21:10)
[2022-10-07] MEDS: FINASTERIDE 5 MG TAB PO SCH (09:14)
[2022-10-07] MEDS: ENOXAPARIN INJ 40 MG/0.4 ML SYR SQ SCH ×2 (09:14→21:10)
[2022-10-07] MEDS: PANTOprazole 40 MG TAB PO SCH (09:14)
[2022-10-07] MEDS: guaiFENesin 600 MG TABCR PO SCH ×2 (09:14→21:11)
[2022-10-07] MEDS: METOPROLOL SUCC 50MG EXT REL TAB PO SCH ×2 (09:15→21:11)
[2022-10-07] MEDS: PSYLLIUM or GUAR GUM FIBER POWDER PACKET PO SCH (09:15)
[2022-10-07] MEDS: TAMSULOSIN HCL 0.4 MG CAP PO SCH (09:15)
[2022-10-07] MEDS: ASPIRIN 81 MG ECTAB PO SCH (09:15)
[2022-10-07] MEDS: dexAMETHasone 6 MG in SYRINGE 0 ML IV SCH (09:16)
[2022-10-07] MEDS: AZELASTINE HCL 0.1% NASAL 200 SPRAYS/27,400 MCG BTL SCH ×2 (09:16→21:12)
--- NOTE | 2022-10-07 12:54 | Hospitalist Progress Note ---
Date of Service October 07, 2022 Assessment & Plan (1) Acute respiratory failure with hypoxia: Plan: This is a 77-year-old male with PMHx of DM type II, HTN, ischemic cardiomyopathy, polycythemia, GERD, JOSE LUIS on CPAP, morbid obesity who presents to the hospital with worsening shortness of breath. - COVID-19 positive , negative rsv and flu -CRP elevated to 12.24 - Procalcitonin-normal - WBC = 15, Lymphocytes 1.15, neutrophils 12.82 - CXR reviewed: showing interstitial pneumonitis - O2 sats improved with 2 L via NC, currently 96% on 2L, does not wear any supplemental O2 at baseline - Decadron 6 mg IV daily. Patient has been on Paxlovid x 4 days, no further ant iviral at this time. -Clinically much better and has been saturating on room air -Does not have any significant cough and no shortness of breath at rest -We will need to observe for a day or 2 more before discharge -Still has minimal cough and minimal shortness of breath with exertion -We will get PT and OT evaluation prior to discharge tomorrow (2) Pneumonia due to COVID-19 virus: Plan: As above (3) Obstructive sleep apnea: Plan: Advised to use CPAP as before at home (4) Obesity (BMI 30-39.9): Plan: - BMI of 37.9, diet and exercise be encouraged throughout hospital stay and on discharge (5) Diabetes mellitus: Plan: - Start the patient on Lantus 60 mg twice daily, sliding scale coverage,-- home dosing of Lantus 80 U QAM and 55 U QPM, metformin 100 mg BID and Trulicity weekly - last A1c was greater than 7, repeat with a.m. labs - Glucose on admission is 95, likely to significantly elevate with being on dexamethasone, glycemic pharmacy consultation -Hemoglobin A1c is 7.1 (6) Heart disease: Plan: No cardiac symptoms (7) Hypertension: Plan: Remains in the upper side (8) Ischemic cardiomyopathy: (9) Hypomagnesemia: Plan: - Continue on Plavix twice per week, metoprolol succinate 50 mg BID, lisinopril 20 mg BID, lasix 40 mg QAM - BP and HR currently stable - Replace mag with 1g IV with since 1.4 on admission -Corrected at 1.8 as of 10/06/2022 DVT ppx: - teds, scds, Lovenox 40 mg Q12H CODE: Full code Dispo: From home, likely to remain in the hospital x 1-2 days Admission and Anticipated Discharge Date Admission Date: October 05, 2022 Subjective 10/06/2022 The patient was seen and examined in telemetry unit and in the COVID room He has been having cough for the last 6 to 7 days Was in ER about 5 days back and was sent home Condition got worse with increasing shortness of breath and came back to the emergency room Has been saturating normally on room air, complains minimally weak and lethargy, no cough and no phlegm 10/07/2022 The patient was seen and examined in telemetry unit and in the COVID room He has been feeling a little better still has cough but no shortness of breath at rest He has been ambulating in the room without any significant symptoms Review of Systems Review of Systems: All systems reviewed and are unremarkable except as noted below Respiratory: No respiratory distress Physical Exam Physical Exam: Lying in bed comfortably Constitutional: well developed, well nourished, + ill appearing and + obese Eyes: PERRL, conjunctivae normal, anicteric sclerae ENMT: external ear and nose normal, oropharynx normal Neck: trachea midline, no thyromegaly Respiratory: no respiratory distress Auscultation: + diminished lung sounds; no crackles and no wheezes Cardiovascular: Rate/Rhythm: regular rate and regular rhythm; not tachycardic Heart Sounds: normal S1 and normal S2; no murmur Extremities: + edema (Trace edema bilaterally) Gastrointestinal (Abdomen): Inspection/Auscultation: normal bowel sounds; abdomen not distended Percussion/Palpation: abdomen soft; abdomen nontender Musculoskeletal: No acute arthritis involving any joint Neurologic: normal touch/pain/proprioception and moves all extremities; no focal motor deficits Psychiatric: A+Ox3, euthymic affect Lymphatic: no cervical or axillary lymphadenopathy Results & Data Results & Data ([facility]) Vital Signs (Past 12 Hours) Vital Signs Temp Pulse Pulse Resp BP Pulse Ox O2 Del Method 10/07/22 11:31 36.5 C 58 L 18 145/78 H 97 Room Air 10/07/22 08:00 48 L 10/07/22 09:20 61 146/71 H 10/07/22 07:56 36.6 C 59 L 18 142/72 H 93 Room Air 10/07/22 03:00 56 L 26 H 145/68 H 96 Room Air 10/07/22 01:49 66 Laboratory Results Short CBC 10/07/22 Range/Units 06:37 WBC 15.87 H (4.8-10.8) K/ul Hgb 10.8 L (14.0-18.0) g/dl Hct 32.9 L (40.1-51.0) % Plt Count 273 (130-400) K/uL BMP 10/07/22 06:37 Sodium 134 L Potassium 4.2 Chloride 103 Carbon Dioxide 24 BUN 29 H Creatinine 0.97 Glucose 178 H Calcium 8.2 L Medications Administered Current Inpatient Medications Acetaminophen (Acetaminophen 325 Mg Tab) 650 mg PO Q4H PRN PRN Reason: Moderate Pain Stop: 11/04/22 18:04 Albuterol (Albuterol Hfa 8 Gm Inhaler) 2 puffs INH Q6R PRN PRN Reason: shortness of breath or wheezing Stop: 11/04/22 18:04 Aspirin (Aspirin 81 Mg Ectab) 81 mg PO DAILY SCOTT Stop: 11/05/22 08:59 Last Admin: 10/07/22 09:15 Dose: 81 mg Atorvastatin Calcium (Atorvastatin 40 Mg Tab) 40 mg PO QPM SCOTT Stop: 11/04/22 20:59 Last Admin: 10/06/22 20:29 Dose: 40 mg Azelastine HCl (Azelastine Hcl 0.1% Nasal 200 Sprays/27,400 Mcg Btl) 2 sprays NA BID SCOTT Stop: 11/04/22 20:59 Last Admin: 10/07/22 09:16 Dose: 2 sprays Benzonatate (Benzonatate 100 Mg Capsule) 100 mg PO TID PRN PRN Reason: cough Stop: 11/04/22 18:04 Last Admin: 10/06/22 20:46 Dose: 100 mg Clopidogrel Bisulfate (Clopidogrel Bisulfate 75 Mg Tab) 75 mg PO TuSa@0900 SCOTT Stop: 11/05/22 08:59 Last Admin: 10/06/22 08:26 Dose: 75 mg Dextrose (Dextrose 50% 50 Ml Syringe) 25 - 50 ml IV UD PRN; Protocol PRN Reason: Hypoglycemia Protocol Stop: 11/04/22 18:04 Docusate Sodium (Docusate Sodium 100 Mg Cap) 100 mg PO BID SCOTT Stop: 11/04/22 20:59 Last Admin: 10/07/22 09:14 Dose: 100 mg Enoxaparin Sodium (Enoxaparin Inj 40 Mg/0.4 Ml Syr) 40 mg SQ Q12H SCOTT Stop: 11/04/22 19:59 Last Admin: 10/07/22 09:14 Dose: 40 mg Famotidine (Famotidine 20 Mg Tab) 20 mg PO BID SCOTT Stop: 11/04/22 20:59 Last Admin: 10/07/22 09:14 Dose: 20 mg Finasteride (Finasteride 5 Mg Tab) 5 mg PO DAILY SCOTT Stop: 11/05/22 08:59 Last Admin: 10/07/22 09:14 Dose: 5 mg Fluticasone Propionate (Fluticasone Propionate Na Spr 16 Gm Btl) 2 sprays NA DAILY PRN PRN Reason: nasal congestion Stop: 11/04/22 18:04 Furosemide (Furosemide 40 Mg Tab) 40 mg PO QAM SCOTT Stop: 11/04/22 18:04 Last Admin: 10/07/22 09:14 Dose: 40 mg Glucagon (Glucagon For Inj 1 Mg Vial) 1 mg SQ UD PRN; Protocol PRN Reason: Hypoglycemia Protocol Stop: 11/04/22 18:04 Glucose (Glucose 40% Gel 15 Gm Tube) 15 - 30 gm PO UD PRN; Protocol PRN Reason: Hypoglycemia Protocol Stop: 11/04/22 18:04 Glucose (Glucose 10 Tab/Tube) 4 - 8 tab PO UD PRN; Protocol PRN Reason: Hypoglycemia Treatment Stop: 11/04/22 18:04 Guaifenesin (Guaifenesin 600 Mg Tabcr) 1,200 mg PO Q12 SCOTT Stop: 11/04/22 20:59 Last Admin: 10/07/22 09:14 Dose: 1,200 mg Hydrocodone Bit/Homatropine Methylb (Hydrocodone/Homatropine Syrup 5mg/1.5mg 5ml Udp) 5 ml PO Q6H PRN PRN Reason: Cough Stop: 10/19/22 22:52 Dexamethasone 6 mg/ Syringe 1.5 mls @ 1 mls/min IV Q24H SCOTT Stop: 11/05/22 08:59 Last Admin: 10/07/22 09:16 Dose: 1 mls/min Insulin Aspart (Insulin Aspart Per Unit) 0 units SC ACHS [facility] Stop: 11/04/22 20:59 Last Admin: 10/07/22 12:16 Dose: 21 units Insulin Glargine (Lantus Per Unit Charge) 0 units SQ BID [facility]; Protocol Stop: 11/05/22 20:59 Last Admin: 10/07/22 08:24 Dose: 45 units Insulin Human NPH (Insulin Human Nph) 35 units SC QAM [facility] Stop: 11/06/22 08:59 Last Admin: 10/07/22 09:08 Dose: 35 units Lisinopril (Lisinopril 20 Mg Tab) 20 mg PO BID [facility] Stop: 11/04/22 20:59 Last Admin: 10/07/22 09:13 Dose: 20 mg Metoprolol Succinate (Metoprolol Succ 50mg Ext Rel Tab) 50 mg PO BID [facility] Stop: 11/04/22 20:59 Last Admin: 10/07/22 09:15 Dose: 50 mg Miscellaneous (Trospium 20 Mg: Order Awaiting Action) 1 each N/A BID [facility] Stop: 11/04/22 20:59 Last Admin: 10/07/22 09:16 Dose: Not Given Miscellaneous (Carbohydrates For Hypoglycemia ) 15 - 30 gm PO UD PRN PRN Reason: Hypoglycemia Protocol Stop: 11/04/22 18:04 Miscellaneous Information (Pharmacy Glycemic Mgmt Consult) 1 each N/A UD PRN; Protocol PRN Reason: Consult Stop: 11/04/22 18:04 Ondansetron HCl (Ondansetron Inj 2 Mg/Ml 2 Ml Vial) 4 mg IV Q4H PRN PRN Reason: Nausea And Vomiting Stop: 11/04/22 18:04 Pantoprazole Sodium (Pantoprazole 40 Mg Tab) 40 mg PO DAILY [facility] Stop: 11/05/22 08:59 Last Admin: 10/07/22 09:14 Dose: 40 mg Pseudoephedrine HCl (Pseudoephedrine Hcl 30 Mg Tab) 60 mg PO Q12H PRN PRN Reason: congestion Stop: 11/04/22 19:59 Psyllium Hydrophilic Mucilloid (Psyllium Or Guar Gum Fiber Powder Packet) 1 pkt PO DAILY [facility] Stop: 11/05/22 08:59 Last Admin: 10/07/22 09:15 Dose: 1 pkt Tamsulosin HCl (Tamsulosin Hcl 0.4 Mg Cap) 0.4 mg PO DAILY [facility] Stop: 11/05/22 08:59 Last Admin: 10/07/22 09:15 Dose: 0.4 mg
--- NOTE | 2022-10-07 13:10 | Pharmacy Report ---
Pharmacy Glycemic Short Note 2 - Date of Service October 07, 2022 - Glycemic Short BSG Results (Last 24 hours): 10/06/22 10/06/22 10/07/22 16:54 20:27 06:37 Glucose 178 H POC Glucose 252 H 254 H 10/07/22 10/07/22 07:47 11:21 Glucose POC Glucose 182 H 276 H OUTPATIENT ANTIDIABETIC REGIMEN: * Lantus 75 units SQ qAM + 40 units SQ qPM * Trulicity 0.75 mg SQ weekly * Metformin 1000 mg PO BID * A1c = 7.1 % (10/06/22) ASSESSMENT: 10/07/22: * Sloan received 164 units of SQ insulin yesterday * 85 units Lantus + 79 units Novolog * BSGs: 150, 247, 252, 254 mg/dL * Fasting BSG trending upward. Will increase basal insulin scale. * Post prandial BSGs are significantly elevated. Patient remains on dexamethasone IV. Will add once daily NPH for steroid induced hyperglycemia (0.4 units/kg based on Adjusted BW). 10/06/22: * Sloan is 77 yo T2DM admitted with COVID-19, worsening shortness of breath * Hyperglycemia in the setting of active infection and administration of high dose IV steroids * Given that patient requires large doses of Lantus at baseline, will attempt to manage with SQ Lantus + Novolog. Hold off on NPH at this time. * Fasting BSG near goal. Lantus dosed per BSG scale (35-45 units BID) until insulin needs are better determined. * Tighten Novolog orders for post prandial hyperglycemia PLAN FOR INPATIENT GLYCEMIC CONTROL: * Hold outpatient oral diabetes medications * Basal insulin * Lantus 40-50 units SQ BID - 40 units for BSG < 140, 45 units for BSG 140-180, 50 units for BSG > 180 * Add NPH 35 units SQ once daily - administer with dexamethasone * Bolus insulin * NovoLog per scale ACHS or Q6hrs while NPO * Goal Range: Low 110 mg/dL - High 140 mg/dL * Correction Factor: 12 mg/dL/unit * Nutritional / Prandial insulin per carb ratio of 1 unit per 3 grams CHO consumed
[2022-10-07] MEDS: ATORVASTATIN 40 MG TAB PO SCH (21:11)
[2022-10-08] MEDS ORDERED: INSULIN ASPART PER UNIT SC SCH
[2022-10-08] MEDS: INSULIN ASPART PER UNIT SC SCH ×2 (08:04→12:25)
[2022-10-08] MEDS: AZELASTINE HCL 0.1% NASAL 200 SPRAYS/27,400 MCG BTL SCH (08:26)
[2022-10-08] MEDS: ASPIRIN 81 MG ECTAB PO SCH (08:26)
[2022-10-08] MEDS: ENOXAPARIN INJ 40 MG/0.4 ML SYR SQ SCH (08:26)
[2022-10-08] MEDS: guaiFENesin 600 MG TABCR PO SCH (08:27)
[2022-10-08] MEDS: PANTOprazole 40 MG TAB PO SCH (08:27)
[2022-10-08] MEDS: FUROSEMIDE 40 MG TAB PO SCH (08:27)
[2022-10-08] MEDS: TAMSULOSIN HCL 0.4 MG CAP PO SCH (08:27)
[2022-10-08] MEDS: PSYLLIUM or GUAR GUM FIBER POWDER PACKET PO SCH (08:28)
[2022-10-08] MEDS: lisinopril 20 MG TAB PO SCH (08:28)
[2022-10-08] MEDS: FINASTERIDE 5 MG TAB PO SCH (08:28)
[2022-10-08] MEDS: FAMOTIDINE 20 MG TAB PO SCH (08:28)
[2022-10-08] MEDS: METOPROLOL SUCC 50MG EXT REL TAB PO SCH (08:29)
[2022-10-08] MEDS: DOCUSATE SODIUM 100 MG CAP PO SCH (08:29)
[2022-10-08] MEDS: INSULIN HUMAN NPH SC SCH (08:39)
[2022-10-08] MEDS: dexAMETHasone 6 MG in SYRINGE 0 ML IV SCH (08:51)
[2022-10-08] MEDS: BENZONATATE 100 MG CAPSULE PO PRN (09:54)
--- NOTE | 2022-10-08 13:41 | Hospitalist Progress Note ---
Date of Service October 08, 2022 Assessment & Plan (1) Acute respiratory failure with hypoxia: Plan: This is a 77-year-old male with PMHx of DM type II, HTN, ischemic cardiomyopathy, polycythemia, GERD, JOSE LUIS on CPAP, morbid obesity who presents to the hospital with worsening shortness of breath. - COVID-19 positive , negative rsv and flu -CRP elevated to 12.24 - Procalcitonin-normal - WBC = 15, Lymphocytes 1.15, neutrophils 12.82 - CXR reviewed: showing interstitial pneumonitis - O2 sats improved with 2 L via NC, currently 96% on 2L, does not wear any supplemental O2 at baseline - Decadron 6 mg IV daily. Patient has been on Paxlovid x 4 days, no further ant iviral at this time. -Clinically much better and has been saturating on room air -Does not have any significant cough and no shortness of breath at rest -We will need to observe for a day or 2 more before discharge -Still has minimal cough and minimal shortness of breath with exertion -We will get PT and OT evaluation prior to discharge tomorrow -Remains stable without any significant symptoms except minimal cough -Has had physical therapy evaluation and also had 2 steps O2 saturation test and he does not require any oxygen -He will be discharged home this afternoon (2) Pneumonia due to COVID-19 virus: Plan: As above (3) Obstructive sleep apnea: Plan: Advised to use CPAP as before at home (4) Obesity (BMI 30-39.9): Plan: - BMI of 37.9, diet and exercise be encouraged throughout hospital stay and on discharge (5) Diabetes mellitus: Plan: - Start the patient on Lantus 60 mg twice daily, sliding scale coverage,-- home dosing of Lantus 80 U QAM and 55 U QPM, metformin 100 mg BID and Trulicity weekly - last A1c was greater than 7, repeat with a.m. labs - Glucose on admission is 95, likely to significantly elevate with being on dexamethasone, glycemic pharmacy consultation -Hemoglobin A1c is 7.1 (6) Heart disease: Plan: No cardiac symptoms (7) Hypertension: Plan: Remains in the upper side (8) Ischemic cardiomyopathy: (9) Hypomagnesemia: Plan: - Continue on Plavix twice per week, metoprolol succinate 50 mg BID, lisinopril 20 mg BID, lasix 40 mg QAM - BP and HR currently stable - Replace mag with 1g IV with since 1.4 on admission -Corrected at 1.8 as of 10/06/2022 DVT ppx: - teds, scds, Lovenox 40 mg Q12H CODE: Full code Dispo: From home, likely to remain in the hospital x 1-2 days Admission and Anticipated Discharge Date Admission Date: October 05, 2022 Subjective 10/06/2022 The patient was seen and examined in telemetry unit and in the COVID room He has been having cough for the last 6 to 7 days Was in ER about 5 days back and was sent home Condition got worse with increasing shortness of breath and came back to the emergency room Has been saturating normally on room air, complains minimally weak and lethargy, no cough and no phlegm 10/07/2022 The patient was seen and examined in telemetry unit and in the COVID room He has been feeling a little better still has cough but no shortness of breath at rest He has been ambulating in the room without any significant symptoms 10/08/2022 The patient was seen and examined in telemetry unit and in the COVID room He has been feeling much better Has minimal cough but denies any other symptoms He has been ambulating in the room without any difficulties He has had to escape O2 saturation test and he does not require any oxygen Review of Systems Review of Systems: All systems reviewed and are unremarkable except as noted below Respiratory: No respiratory distress Physical Exam Physical Exam: Lying in bed comfortably Constitutional: well developed, well nourished, + ill appearing and + obese Eyes: PERRL, conjunctivae normal, anicteric sclerae ENMT: external ear and nose normal, oropharynx normal Neck: trachea midline, no thyromegaly Respiratory: no respiratory distress Auscultation: + diminished lung sounds; no crackles and no wheezes Cardiovascular: Rate/Rhythm: regular rate and regular rhythm; not tachycardic Heart Sounds: normal S1 and normal S2; no murmur Extremities: + edema (Trace edema bilaterally) Gastrointestinal (Abdomen): Inspection/Auscultation: normal bowel sounds; abdomen not distended Percussion/Palpation: abdomen soft; abdomen nontender Musculoskeletal: No acute arthritis involving any joint Neurologic: normal touch/pain/proprioception and moves all extremities; no focal motor deficits Psychiatric: A+Ox3, euthymic affect Lymphatic: no cervical or axillary lymphadenopathy Results & Data Results & Data ([facility]) Vital Signs (Past 12 Hours) Vital Signs Temp Pulse Pulse Pulse Pulse Resp Resp 10/08/22 08:00 36.7 C 58 L 18 10/08/22 09:20 83 67 63 16 10/08/22 09:19 10/08/22 07:51 36.7 C 54 L 18 10/08/22 03:51 36.5 C 57 L 20 Resp Resp BP Pulse Ox Pulse Ox Pulse Ox Pulse Ox 10/08/22 08:00 145/77 H 96 10/08/22 09:20 16 16 94 96 95 10/08/22 09:19 10/08/22 07:51 120/68 95 10/08/22 03:51 141/70 H 97 O2 Del Method 10/08/22 08:00 Room Air 10/08/22 09:20 10/08/22 09:19 Room Air 10/08/22 07:51 10/08/22 03:51 Room Air
[2022-10-08] MEDS ORDERED: LANTUS PER UNIT CHARGE SQ ONE (16:30)
--- NOTE | 2022-10-09 07:22 | Discharge Summary ---
Date of Service October 08, 2022 Admission HPI Per Admitting Provider This is a 77-year-old male with PMHx of DM type II, HTN, ischemic cardiomyopathy, polycythemia, GERD, JOSE LUIS on CPAP, morbid obesity who presents to the hospital with worsening shortness of breath. He was traveling two weekends ago to [place] for a wedding (Sep 23) with his , 2 daughters and and grandson; since returning his grandson in law was found to have Covid and they have all gotten sick. About 12 days ago, on Saturday he started with symptoms of an upper head cold, and then by (09/27) things progressed. He took a home test on 09/29 which was positive, as well as his whom lives with him. He was to the ER on Monday 10/01 for feeling achy, weak, shortness of breath and cough with thick nasty sputum production, but was not hypoxic at that time. Upon discharge from the ER he was prescribed tylenol, albuterol inhaler, and Paxlovid by the ER and has been taking these as instructed. Today he is found to have sats at 84% on room air with walking to the bathroom. He has had a very bad headache since Saturday and feels coughing makes it worse. He feels wheezy. He wears a CPAP HS but does not normally require supplemental O2. He hasn't been able to wear it at all this week because of issues with breathing at night. Admits to having a very dry mouth all the time and feels this is worse in the past week. He was nauseous and threw up once today. Denies fever, chills or sweats. + COVID, negative flu and RSV. Maintaining sats at 96% on 2 L via NC. Given 1 L NSS in the ER. Dexamethasone 6 mg IV. Admission Exam Per Admitting Provider Physical Exam: General: awake, alert, + mild distress, + fatigued, + appears uncomfortable Head: Normocephalic, atraumatic ENT: PERRL, EOMI, no pharyngeal exudate, mucous membranes dry Chest: + Diminished breath sounds throughout, + crackles at bases bilaterally, on 2L via NC with sats at 96%, no adventitious breath sounds Cardiac: Regular rate and rhythm, no murmur, no JVD, normal peripheral pulses, good capillary refill Abdominal: NABS x 4 quadrants, soft, nondistended, nontender to palpation, no rebound or guarding Extremities: Normal inspection, no peripheral edema or erythema, calfs nontender to palpation Skin: appears thacker, scar tissue specifically over previous TKA is white Psych: Normal mood and affect Neuro: AAO x 3, strength intact bilaterally and rated 5/5, no motor deficits, speech is clear, no peripheral sensory deficits Principal Diagnosis Acute respiratory failure with hypoxia ,COVID-19 virus infection, obstructive sleep apnea, type 2 diabetes, ischemic cardiomyopathy Discharge Exam Lying in bed comfortably Constitutional well developed, well nourished, + ill appearing and + obese Eyes PERRL, conjunctivae normal, anicteric sclerae ENMT external ear and nose normal, oropharynx normal Neck trachea midline, no thyromegaly Respiratory no respiratory distress Auscultation: + diminished lung sounds; no crackles and no wheezes Cardiovascular Rate/Rhythm: regular rate and regular rhythm; not tachycardic Heart Sounds: normal S1 and normal S2; no murmur Extremities: + edema (Trace edema bilaterally) Gastrointestinal (Abdomen) Inspection/Auscultation: normal bowel sounds; abdomen not distended Percussion/Palpation: abdomen soft; abdomen nontender Neurologic normal touch/pain/proprioception and moves all extremities; no focal motor deficits Psychiatric A+Ox3, euthymic affect Lymphatic no cervical or axillary lymphadenopathy Discharge Data Allergies Allergy/AdvReac Type Severity Reaction Status Date / Time No Known Allergies Allergy Verified 10/01/22 20:37 Consultations 10/05/22 13:46 ED Decision to Admit Stat Hospital Course (1) Acute respiratory failure with hypoxia: This is a 77-year-old male with PMHx of DM type II, HTN, ischemic cardiomyopathy, polycythemia, GERD, JOSE LUIS on CPAP, morbid obesity who presents to the hospital with worsening shortness of breath. - COVID-19 positive , negative rsv and flu -CRP elevated to 12.24 - Procalcitonin-normal - WBC = 15, Lymphocytes 1.15, neutrophils 12.82 - CXR reviewed: showing interstitial pneumonitis - O2 sats improved with 2 L via NC, currently 96% on 2L, does not wear any supplemental O2 at baseline - Decadron 6 mg IV daily. Patient has been on Paxlovid x 4 days, no further antiviral at this time. -Clinically much better and has been saturating on room air -Does not have any significant cough and no shortness of breath at rest -We will need to observe for a day or 2 more before discharge -Still has minimal cough and minimal shortness of breath with exertion -We will get PT and OT evaluation prior to discharge tomorrow -Remains stable without any significant symptoms except minimal cough -Has had physical therapy evaluation and also had 2 steps O2 saturation test and he does not require any oxygen -He will be discharged home this afternoon (2) Pneumonia due to COVID-19 virus: As above (3) Obstructive sleep apnea: Advised to use CPAP as before at home (4) Obesity (BMI 30-39.9): - BMI of 37.9, diet and exercise be encouraged throughout hospital stay and on discharge (5) Diabetes mellitus: - Start the patient on Lantus 60 mg twice daily, sliding scale coverage,-- home dosing of Lantus 80 U QAM and 55 U QPM, metformin 100 mg BID and Trulicity weekly - last A1c was greater than 7, repeat with a.m. labs - Glucose on admission is 95, likely to significantly elevate with being on dexamethasone, glycemic pharmacy consultation -Hemoglobin A1c is 7.1 (6) Heart disease: No cardiac symptoms (7) Hypertension: Remains in the upper side (8) Ischemic cardiomyopathy: (9) Hypomagnesemia: - Continue on Plavix twice per week, metoprolol succinate 50 mg BID, lisinopril 20 mg BID, lasix 40 mg QAM - BP and HR currently stable - Replace mag with 1g IV with since 1.4 on admission -Corrected at 1.8 as of 10/06/2022 DVT ppx: - teds, scds, Lovenox 40 mg Q12H CODE: Full code Dispo: From home, likely to remain in the hospital x 1-2 days Total Time Total Time Spent Total Time Spent (In Minutes): 35 minutes Discharge Plan Discharge Items Patient Disposition: Home - Self-Care Reason For Visit: COVID PNA Discharge Diagnosis: Acute respiratory failure with hypoxia ,COVID-19 virus infection, obstructive sleep apnea, type 2 diabetes, ischemic cardiomyopathy Condition on Discharge: Good Activity: Resume your previous activity Non-emergency contact: Primary Care Provider Call non-emergency contact if: you have any medication questions and your symptoms worsen Follow-up/Referrals: Eliz Davey MD [Primary Care Provider] - (Date & Time 10/15/2022 11:00 AM Provider Eliz Davey MD Department [facility] ) Diet: Carb Consistent or DM2, Heart Healthy and Low Sodium (2gm) Addtl Attending Provider Instructions: Please take precautions to avoid fall Continue dexamethasone for 7 more days Please give appointment with your healthcare providers You Will need to have home isolation until of this month as per CDC guidelines below: Pending Studies at Discharge: No Stand-Alone Forms: My [employer], Smoking Cessation Medications and DC Order Prescriptions: New hydrocodone-homatropine [Hydromet] 5-1.5 mg/5 mL Syrup 5 ml PO Q6H PRN (Reason: cough) Qty: 120 0RF dexamethasone 6 mg tablet 6 mg PO DAILY Qty: 7 0RF Continued clopidogrel 75 mg tablet 75 mg PO 2XWK Qty: 30 3RF Rx Instructions: TAKES ON TUESDAYS & SATURDAYS. finasteride 5 mg tablet 5 mg PO DAILY Qty: 90 2RF trospium 20 mg tablet 20 mg PO BID 90 Days Qty: 180 1RF azelastine 137 mcg (0.1 %) aerosol,spray 2 spray intranasal BID Qty: 60 3RF Rx Instructions: instill 2 sprays into each nostril twice daily fluticasone propionate 50 mcg/actuation spray,suspension 2 spray intranasal DAILY PRN (Reason: nasal congestion) Qty: 48 3RF metformin 1,000 mg tablet 1,000 mg PO BID lisinopril 20 mg tablet 20 mg PO BID Qty: 180 metoprolol succinate 50 mg tablet extended release 24 hr 50 mg PO BID atorvastatin 40 mg tablet 40 mg PO QPM Qty: 30 insulin glargine 100 unit/mL solution See Rx Instructions subcut UD Rx Instructions: subcut use as directed; 75 UNITS IN AM AND 40 UNITS PM psyllium husk [Metamucil] 0.4 gram capsule 0.4 g PO DAILY Label Comments: TABLESPOON WITH 9 OZ OF WATER DAILY pantoprazole 20 mg tablet,delayed release (DR/EC) 20 mg PO DAILY aspirin 81 mg Tablet,Delayed Release (Dr/Ec) 81 mg PO DAILY ferrous sulfate 325 mg (65 mg iron) Tablet 325 mg PO Q OTHER DAY niacin 500 mg Capsule, Extended Release 500 mg PO DAILY ipratropium bromide 21 mcg (0.03 %) [place],Non-Aerosol 2 spray INTRANASAL BID Rx Instructions: administer into each nostril [id number] Tablet 1 tab PO DAILY Biotene Dry Mouth Oral Rinse Mouthwash 1 ea PO DIRECTED PRN (Reason: Dry Mouth) Trulicity 0.75 mg/0.5 mL pen injector 0.75 mg SUBCUT WK famotidine 20 mg tablet 20 mg PO BID albuterol sulfate 90 mcg/actuation HFA aerosol inhaler 2 inha INH QID PRN (Reason: shortness of breath or wheezing) Qty: 6.7 0RF benzonatate 100 mg capsule 100 mg PO TID PRN (Reason: cough) Qty: 20 0RF docusate sodium [Stool Softener] 100 mg Capsule 100 mg PO BID furosemide 40 mg tablet 40 mg PO QAM tamsulosin 0.4 mg Capsule 0.4 mg PO DAILY Discontinued Paxlovid (EUA) 300 mg (150 mg x 2)-100 mg tablet See Rx Instructions .ROUTE .COMPLEX Qty: 30 0RF Rx Instructions: take TWO 150 mg tablets of nirmatrelvir with ONE 100 mg tablet of ritonavir twice daily for 5 days Discharge Orders: Discharge Order (Routine); Ordered 10/08/22 Ordered By: Aarti Serrato/Other Patient Handouts: Managing Type 2 Diabetes Admission Data Admit Date/Time: 10/05/22 14:56 Attending Provider: Aarti Murray Admit Provider: Rashida Buck Primary Care Provider: Eliz Davey Other Providers: Rashida Buck Other Interventions: Discharge Summary Assessment (RN) Last Done: 10/08/22 13:59
== END 2022-10-08 14:49 | disposition home or self-care (01) | DRG 177 ==
LOC: ED 10:27 → SUATTDRO 14:56 → 2S 14:56

== ENCOUNTER 2023-06-22 01:17 | Observation (INO) ==
[2023-06-22] MEDS ORDERED: ONDANSETRON INJ 2 MG/ML 2 ML VIAL IV STA ×2 (01:37→02:46)
[2023-06-22] MEDS ORDERED: MoRPHine SULFATE 4 MG/ML 1 ML CARP\\VIAL IV PRN ×2 (01:37→05:30)
[2023-06-22] MEDS ORDERED: SODIUM CHLORIDE 0.9% 500 ML IV STA (01:37)
--- NOTE | 2023-06-22 01:55 | Emergency Department Note ---
History of Present Illness General Chief complaint: Abdominal Pain Stated complaint: CHEST PAIN Time Seen by Provider: 06/22/23 01:30 History of Present Illness Maximum Pain Intensity: 7 This 77-year-old male presents the ER complaining of right lower abdominal pain today. Patient denies chest pain, dyspnea, nausea, vomiting, diarrhea, flank pain, testicular pain, penile pain. No injury to the area. He has had hernia repair but no other abdominal surgeries. Home Medications Medication Instructions Recorded Confirmed Type atorvastatin 40 mg tablet 40 mg PO QPM #30 tabs 09/02/19 06/22/23 History lisinopril 20 mg tablet 20 mg PO BID #180 tabs 09/02/19 06/22/23 History metformin 1,000 mg tablet 1,000 mg PO BID 09/02/19 06/22/23 History metoprolol succinate 50 mg 50 mg PO BID 09/02/19 06/22/23 History tablet,extended release 24 hr psyllium husk 0.4 gram capsule 0.4 g PO DAILY 05/22/21 06/22/23 History (Metamucil) docusate sodium 100 mg capsule 100 mg PO BID 12/22/21 06/22/23 History (Stool Softener) furosemide 40 mg tablet 40 mg PO QAM 12/22/21 06/22/23 History albuterol sulfate 90 mcg/actuation 2 inha inhalation QID PRN 10/01/22 06/22/23 Rx aerosol inhaler shortness of breath or wheezing #6.7 grams aspirin 81 mg tablet,delayed 81 mg PO DAILY 10/01/22 06/22/23 History release ferrous sulfate 325 mg (65 mg 325 mg PO Q OTHER DAY 10/01/22 06/22/23 History iron) tablet ipratropium bromide 21 mcg (0.03 2 spray intranasal BID 10/01/22 06/22/23 H istory %) nasal spray ryvatbxkrser-dhptogwn-obcukl tablet 1 tab PO DAILY 10/01/22 06/22/23 History niacin 500 mg capsule,extended 500 mg PO DAILY 10/01/22 06/22/23 History release saliva substitute combo no.9 1 ea PO DIRECTED PRN Dry Mouth 10/01/22 06/22/23 History (Biotene Dry Mouth Oral Rinse mouthwash) tamsulosin 0.4 mg capsule 0.4 mg PO DAILY 10/05/22 06/22/23 History pantoprazole 20 mg tablet,delayed 20 mg PO DAILY #90 tabs 11/14/22 06/22/23 Rx release trospium 20 mg tablet 20 mg PO BID 90 days #180 tabs 01/09/23 06/22/23 Rx famotidine 20 mg tablet 20 mg PO BID #90 tabs 01/29/23 06/22/23 Rx finasteride 5 mg tablet 5 mg PO DAILY #90 tabs 02/04/23 06/22/23 Rx fluticasone propionate 50 2 spray intranasal DAILY PRN nasal 02/14/23 06/22/23 Rx mcg/actuation nasal congestion #48 grams spray,suspension clopidogrel 75 mg tablet 75 mg PO 2XWK #30 tabs 05/20/23 06/22/23 Rx insulin glargine 100 unit/mL See Rx Instructions subcut UD 06/17/23 06/22/23 History subcutaneous solution dulaglutide 4.5 mg/0.5 mL 4.5 mg subcut WK 06/22/23 06/22/23 History subcutaneous pen injector (Trulicity) repaglinide 2 mg tablet 2 mg PO DAILY 06/22/23 06/22/23 History Allergies Allergy/AdvReac Type Severity Reaction Status Date / Time codeine Allergy Nausea Verified 06/17/23 11:16 Past Med/Surg History Medical History Acid reflux Acute hypoxemic respiratory failure due to COVID-19 CAD (coronary artery disease) COVID-19 Diabetes Dyslipidemia Enlarged prostate [place] (hard of hearing) HTN (hypertension) BORDERLINE Presence of drug coated stent in LAD coronary artery PT NOT SURE IF DRUG COATED Surgical History History of back surgery History of cataract surgery History of colonoscopy History of heart artery stent X1 - [facility] History of hernia repair History of repair of rotator cuff PT NOT SURE History of total right knee replacement X2 S/P lumbar laminectomy Family History Other Coronary heart disease Social History Smoking Status: Never smoker Second Hand Exposure: No; Do You Dip or Chew Tobacco: No; Hx Alcohol Use: No Hx Substance Use: No Preferred Language: [place]ib[place]ian Communication Ability: Effective Skip Hoist Engineer Required: No Beliefs That Will Affect Care: None marital status: Current Living Situation: Spouse current occupational status: retired Feels Safe at Home: Yes Assistive Devices: BiPap and Glasses Review of Systems A total of 10 systems reviewed and were otherwise negative Physical Exam Vital Signs Vital Signs - 24 hr 06/22/23 01:24 06/22/23 01:37 06/22/23 03:05 Temperature 36.4 C L Temperature Source Temporal Artery Scan Pulse Rate 82 89 Pulse Rate from SpO2 Sensor Respiratory Rate 18 Respiratory Effort / Characteristics Non-Labored Spontaneous Respiratory Depth Normal Blood Pressure 143/86 H Blood Pressure Mean 105 Blood Pressure Position Sitting Pulse Oximetry 94 92 Oxygen Delivery Method Room Air Room Air Oxygen Flow Rate Sepsis Recent Fever Within 48 Hours No Sepsis New/Unexplained Change in Mental Status No Sepsis Action Taken by Nursing No Action Required Oxygen Flow Rate - Titration Pulse Oximetry Post Tiitration 06/22/23 03:17 06/22/23 02:55 06/22/23 03:00 Temperature Temperature Source Pulse Rate 89 Pulse Rate from SpO2 Sensor 89 Respiratory Rate 26 H Respiratory Effort / Characteristics Respiratory Depth Blood Pressure 133/80 Blood Pressure Mean 97 Blood Pressure Position Pulse Oximetry 87 L 95 Oxygen Delivery Method Room Air Oxygen Flow Rate 0 Sepsis Recent Fever Within 48 Hours Sepsis New/Unexplained Change in Mental Status Sepsis Action Taken by Nursing Oxygen Flow Rate - Titration 2 Pulse Oximetry Post Tiitration 96 06/22/23 03:00 06/22/23 03:30 06/22/23 03:30 Temperature Temperature Source Pulse Rate 89 87 Pulse Rate from SpO2 Sensor 92 H 89 Respiratory Rate 24 24 Respiratory Effort / Characteristics Respiratory Depth Blood Pressure 146/92 H Blood Pressure Mean 98 Blood Pressure Position Pulse Oximetry 87 L 97 Oxygen Delivery Method Oxygen Flow Rate 0 2 Sepsis Recent Fever Within 48 Hours Sepsis New/Unexplained Change in Mental Status Sepsis Action Taken by Nursing Oxygen Flow Rate - Titration Pulse Oximetry Post Tiitration 06/22/23 04:00 06/22/23 04:00 06/22/23 04:51 Temperature Temperature Source Pulse Rate 90 98 H Pulse Rate from SpO2 Sensor 90 Respiratory Rate 22 Respiratory Effort / Characteristics Respiratory Depth Blood Pressure 146/81 H Blood Pressure Mean 113 Blood Pressure Position Pulse Oximetry 98 Oxygen Delivery Method Oxygen Flow Rate 2 Sepsis Recent Fever Within 48 Hours Sepsis New/Unexplained Change in Mental Status Sepsis Action Taken by Nursing Oxygen Flow Rate - Titration Pulse Oximetry Post Tiitration 06/22/23 05:00 Temperature Temperature Source Pulse Rate 94 H Pulse Rate from SpO2 Sensor 94 H Respiratory Rate 23 Respiratory Effort / Characteristics Respiratory Depth Blood Pressure Blood Pressure Mean Blood Pressure Position Pulse Oximetry 97 Oxygen Delivery Method Oxygen Flow Rate 2 Sepsis Recent Fever Within 48 Hours Sepsis New/Unexplained Change in Mental Status Sepsis Action Taken by Nursing Oxygen Flow Rate - Titration Pulse Oximetry Post Tiitration VITALS: Vitals are noted on the nurse's note and reviewed by myself. Vital signs stable. GENERAL: Pleasant male, in no acute distress, nondiaphoretic, well-developed well-nourished. SKIN: The skin was without rashes, erythema, edema, or bruising. There is no tenting of the skin. Capillary reflex less than 2 seconds. HEAD: Normocephalic atraumatic. EARS: External auditory canals clear, EYES: Pupils equal round and reactive to light and accommodation. Conjunctivae without injection, sclerae without icterus. Extraocular movements intact. NOSE: Patent, turbinates without inflammation or discharge. MOUTH: Mucous membranes moist. Pharynx without erythema or exudate. Uvula midline. Airway patent. Tongue does not deviate. NECK: Supple without nuchal rigidity. No lymphadenopathy. No thyromegaly. Cervical spine is nontender. No JVD. HEART: Regular rate and rhythm LUNGS: Clear to auscultation bilaterally without wheezes, rales or rhonchi. No retractions or accessory muscle use. ABDOMEN: Positive bowel sounds x 4. Normal tympanic percussion. Soft, tender lower abdomen, without masses or organomegaly. sign negative. No guarding or rebound tenderness. No CVA tenderness MUSCULOSKELETAL: No muscle atrophy, erythema, or edema noted. NEURO: Patient was alert and oriented to person place and time. Normal sensation to light and sharp touch. No focal neurological deficits. Course Administered Medications Hydromorphone HCl (Hydromorphone Inj 0.5 Mg/0.5 Ml Syr) 0.5 mg IV Q15M PRN PRN Reason: Pain Stop: 07/06/23 02:45 Last Admin: 06/22/23 02:55 Dose: 0.5 mg Documented By: LEO Morphine Sulfate (Morphine Sulfate 4 Mg/Ml 1 Ml Carp\Vial) 4 mg IV Q15M PRN PRN Reason: Pain Stop: 07/06/23 01:36 Last Admin: 06/22/23 01:43 Dose: 4 mg Documented By: THERESA Discontinued Medications Sodium Chloride (Nss) 500 mls @ 999 mls/hr IV .Q31M STA Stop: 06/22/23 02:07 Last Infusion: 06/22/23 03:14 Dose: 0 mls/hr Documented By: Admin: 06/22/23 01:42 Dose: 999 mls/hr Documented By: THERESA Piperacillin Sod/Tazobactam Sod (Zosyn) 4.5 gm in 120 mls @ 240 mls/hr IV NOW ONE Stop: 06/22/23 04:03 Last Infusion: 06/22/23 04:58 Dose: 0 mls/hr Documented By: Admin: 06/22/23 04:13 Dose: 240 mls/hr Documented By: LEO Ioversol (Optiray 320 100ml) 93 ml IV ONCE ONE Stop: 06/22/23 02:47 Last Admin: 06/22/23 02:47 Dose: 93 ml Documented By: FRANCK Ondansetron HCl (Ondansetron Inj 2 Mg/Ml 2 Ml Vial) 4 mg IV NOW STA Stop: 06/22/23 01:38 Last Admin: 06/22/23 01:43 Dose: 4 mg Documented By: THERESA Ondansetron HCl (Ondansetron Inj 2 Mg/Ml 2 Ml Vial) 4 mg IV NOW STA Stop: 06/22/23 02:47 Last Admin: 06/22/23 02:55 Dose: 4 mg Documented By: LEO Medical Decision Making Medical Records Attestation: I reviewed the patient's medical records. Home Medications Current Medication List: was personally reviewed by me Laboratory Data Attestation: I reviewed the patient's lab results. 06/22/23 01:52 06/22/23 01:52 Lab Results 06/22/23 06/22/23 06/22/23 Range/Units 01:30 01:52 01:52 WBC 16.64 H (4.8-10.8) K/ul RBC 4.93 (4.70-6.10) M/uL Hgb 14.3 (14.0-18.0) g/dl Hct 41.3 L (42.0-52.0) % MCV 83.8 (80.0-100.0) fL MCH 29.0 (25.0-34.0) pg MCHC 34.6 (32.0-36.0) g/dL RDW Std Deviation 41.2 (36.4-46.3) fL RDW Coeff of Sherri 13.5 (11.5-14.5) % Plt Count 235 (130-400) K/uL MPV 10.7 (9.4-12.4) fL Immature Gran % (Auto) 0.4 % Neut % (Auto) 72.9 % Lymph % (Auto) 18.9 % Island % (Auto) 6.8 % Eos % (Auto) 0.8 % Baso % (Auto) 0.2 % Neut # (Auto) 12.11 H (1.40-6.50) K/uL Lymph # (Auto) 3.15 (1.2-3.4) K/uL Island # (Auto) 1.13 H (0.11-0.59) K/uL Eos # (Auto) 0.14 (0-0.50) K/uL Baso # (Auto) 0.04 (0-0.2) K/uL Immature Gran # (Auto) 0.07 (0.01-0.20) K/uL Sodium 136 (136-145) mmol/L Potassium 3.8 (3.5-5.1) mmol/L Chloride 101 (98-107) mmol/L Carbon Dioxide 24 (21-32) mmol/L Anion Gap 11 (3-11) BUN 12 (6-23) mg/dl Creatinine 0.95 (0.6-1.4) mg/dl Est Cr Clr Drug Dosing 81.4 ml/min Est GFR ( Amer) 88.5 ml/min Est GFR (Non-Af Amer) 76.4 ml/min BUN/Creatinine Ratio 12.6 (10-20) Glucose 226 H (70-99(Fasting)) mg/dl Calcium 9.0 (8.6-10.3) mg/dl Total Bilirubin 0.9 (0.2-1.0) mg/dl AST 17 (13-39) U/L ALT 22 (7-52) U/L Alkaline Phosphatase 96 (34-104) U/L Total Protein 7.4 (6.0-8.3) gm/dl Albumin 4.2 (3.4-5.0) gm/dl Globulin 3.2 (2.5-4.0) gm/dl Albumin/Globulin Ratio 1.3 (0.9-2) Lipase 19 (11-82) U/L Urine Color Dark Yellow Urine Appearance Clear (Clear) Urine pH 5.5 (4.5-7.5) Ur Specific [place] 1.026 (1.000-1.030) Urine Protein 1+ H (Negative) Urine Glucose (UA) 2+ H (Negative) Urine Ketones Trace H (Negative) Urine Blood 2+ H (Negative) Urine Nitrite Negative (Negative) Urine Bilirubin Negative (Negative) Urine Urobilinogen Negative (Negative) Ur Leukocyte Esterase Negative (Negative) Urine WBC (Auto) 1-5 (0-5) /hpf Urine RBC (Auto) 0-4 (0-4) /hpf U Hyaline Cast (Auto) 5-10 H (0-5) /lpf U Epithel Cells (Auto) 20-30 H (0-5) /lpf Urine Bacteria (Auto) Negative (Negative) Imaging Data Attestation: I personally reviewed and interpreted this imaging study as follows: Radiologist's Impression: Abdomen/Pelvis CT 06/22/23 01:37 CR Exam(s): CT ABDOMEN + PELVIS With Contrast IV Amt: 93 cc's EXAM: CT Abdomen and Pelvis With Intravenous Contrast CLINICAL HISTORY: Reason for exam: rlq pain. TECHNIQUE: Axial computed tomography images of the abdomen and pelvis with intravenous contrast. CTDI is 28.02 mGy and DLP is 1500.96 mGy-cm. Automated exposure control was utilized for the study. A dose lowering technique was utilized adhering to the principles of ALARA. CONTRAST: Patient received 93 cc's of IV contrast COMPARISON: CT abdomen/pelvis on 12/04/2011 FINDINGS: Lung bases: Mild bibasilar atelectasis. Heart: Coronary artery and aortic Calcifications. Mediastinum: Fluid in the visualized distal esophagus, with mild prominence of the esophageal wall, concerning for esophagitis. ABDOMEN: Liver: Unremarkable. No mass. Gallbladder and bile ducts: Cholelithiasis in a mildly distended gallbladder. Nonspecific mild biliary dilatation. Common bile duct measures 10.8 mm in diameter. Further evaluation could be performed with ERCP or MRCP if clinically indicated. Pancreas: Mild atrophy of the pancreas. No ductal dilation. Spleen: Unremarkable. No splenomegaly. Adrenals: Unremarkable. No mass. Kidneys and ureters: Bilateral renal cysts. No hydronephrosis or obstructing stone. Stomach and bowel: Diverticulosis without evidence of diverticulitis. No obstruction. PELVIS: Appendix: Mild prominence of the appendix with associated inflammatory changes, concerning for acute appendicitis. Appendix measures approximately 1.0 cm in diameter. Bladder: Mild prominence of the bladder wall is nonspecific. Please correlate with urinalysis if concerned for cystitis. Reproductive: Unremarkable as visualized. ABDOMEN and PELVIS: Intraperitoneal space: Unremarkable. No free air. No significant fluid collection. Bones/joints: Degenerative changes of the spine. No acute fracture. No dislocation. Soft tissues: Unremarkable. Vasculature: Phleboliths in the pelvis. Atherosclerotic changes of the vasculature. No aortic aneurysm or dissection. Lymph nodes: Unremarkable. No enlarged lymph nodes. IMPRESSION: 1. Mild prominence of the appendix with associated inflammatory changes, concerning for acute appendicitis. Appendix measures approximately 1.0 cm in diameter. 2. Fluid in the visualized distal esophagus, with mild prominence of the esophageal wall, concerning for esophagitis. 3. Mild prominence of the bladder wall is nonspecific. Please correlate with urinalysis if concerned for cystitis. 4. Cholelithiasis in a mildly distended gallbladder. 5. Nonspecific mild biliary dilatation. Common bile duct measures 10.8 mm in diameter. Further evaluation could be performed with ERCP or MRCP if clinically indicated. Communications: Call Doctor Appendicitis Electronically signed by: Korey Zamora M.D. 06/22/23 05:01 AM [facility] Narrative Prior records/ancillary studies reviewed. Triage Nursing notes reviewed. Additional history obtained from family The patient's history was concerning for abdominal pain. Differential diagnosis: Etiologies such as appendicitis, diverticulitis, PUD, biliary pathology, UTI, pancreatitis, obstruction, mesenteric ischemia, aortic pathology, infections, inflammatory bowel disease, renal colic, as well as others were entertained. Physical examination findings: As above. ER treatment provided: An order was placed for continuous cardiac monitoring. The monitor shows a rate of 60-100 with a sinus rhythm per my Independent interpretation. IV fluids morphine and Zofran were ordered On reassessment the patient felt better. Diagnostics interpreted by me: The labs Independently Interpreted by myself revealed Leukocytosis, hyperglycemia without DKA. Negative urine Imaging studies: CT of the abdomen pelvis concerning for acute appendicitis per my independent interpretation. Report was reviewed as above. Consultation: A consultation was placed with the surgical team, IFRAH Lobo. the case was discussed and diagnostics were reviewed. The patient was evaluated in the ER for further treatment. Exam and history seem consistent with acute appendicitis. Labs and diagnostics were independently interpreted by myself. Radiology read the CAT scan. Patient was started on antibiotics. Surgery was consulted and will evaluate the case. Patient was admitted to the surgical service in stable condition. By the evaluation outlined above emergent etiologies such as diverticulitis, PUD, biliary pathology, UTI, pancreatitis, obstruction, mesenteric ischemia, aortic pathology, inflammatory bowel disease, renal colic, as well as others were deemed relatively unlikely. The pt informed about the findings as listed above. All questions were answered and pleased with the treatment. The chart was completed utilizing [employer] Speech voice recognition software. Grammatical errors, random word insertions, pronoun errors, and incomplete sentences are an occassional consequence of this system due to software limitations, ambient noise, and hardware issues. Any formal questions or concerns about the content, text, or information contained within the body of this dictation should be directly addressed to the physician pharmacist assistant for clarification. Impression & Plan Acute appendicitis Discharge Plan Visit Data Chief Complaint: Abdominal Pain Stated Complaint: CHEST PAIN ED Provider: Kelsie Green ED Midlevel Provider: Dayanna Perez Discharge Problem: Acute appendicitis Patient Disposition: Being Evaluated by Surgeon Condition: Good Forms Stand Alone Forms: My [facility] [employer] Prescriptions Prescriptions: No Action pantoprazole 20 mg tablet,delayed release (DR/EC) 20 mg PO DAILY Qty: 90 1RF famotidine 20 mg tablet 20 mg PO BID Qty: 90 3RF finasteride 5 mg tablet 5 mg PO DAILY Qty: 90 3RF fluticasone propionate 50 mcg/actuation spray,suspension 2 spray intranasal DAILY PRN (Reason: nasal congestion) Qty: 48 3RF clopidogrel 75 mg tablet 75 mg PO 2XWK Qty: 30 3RF Rx Instructions: TAKES ON TUESDAYS & SATURDAYS. trospium 20 mg tablet 20 mg PO BID 90 Days Qty: 180 3RF metformin 1,000 mg tablet 1,000 mg PO BID lisinopril 20 mg tablet 20 mg PO BID Qty: 180 metoprolol succinate 50 mg tablet extended release 24 hr 50 mg PO BID atorvastatin 40 mg tablet 40 mg PO QPM Qty: 30 insulin glargine 100 unit/mL solution See Rx Instructions subcut UD Rx Instructions: subcut use as directed; 58 UNITS IN AM AND 18 UNITS PM psyllium husk [Metamucil] 0.4 gram capsule 0.4 g PO DAILY Patient Comments: TABLESPOON WITH 9 OZ OF WATER DAILY aspirin 81 mg Tablet,Delayed Release (Dr/Ec) 81 mg PO DAILY ferrous sulfate 325 mg (65 mg iron) Tablet 325 mg PO Q OTHER DAY niacin 500 mg Capsule, Extended Release 500 mg PO DAILY ipratropium bromide 21 mcg (0.03 %) [place],Non-Aerosol 2 spray INTRANASAL BID Rx Instructions: administer into each nostril [id number]-[id number]-enumcy Tablet 1 tab PO DAILY Biotene Dry Mouth Oral Rinse Mouthwash 1 ea PO DIRECTED PRN (Reason: Dry Mouth) albuterol sulfate 90 mcg/actuation HFA aerosol inhaler 2 inha INH QID PRN (Reason: shortness of breath or wheezing) Qty: 6.7 0RF docusate sodium [Stool Softener] 100 mg Capsule 100 mg PO BID furosemide 40 mg tablet 40 mg PO QAM tamsulosin 0.4 mg Capsule 0.4 mg PO DAILY repaglinide 2 mg tablet 2 mg PO DAILY Trulicity 4.5 mg/0.5 mL pen injector 4.5 mg SUBCUT WK Referrals Referrals: Eliz Davey MD [Primary Care Provider] - Acute appendicitis Qualifiers: Acute appendicitis type: with localized peritonitis Appendicitis gangrene presence: unspecified whether gangrene present Appendicitis perforation presence: unspecified whether perforation present Appendicitis abscess presence: without abscess Qualified Code(s): K35.30 - Acute appendicitis with localized peritonitis, without perforation or gangrene
[2023-06-22 02:04] LABS: Basophils # (auto) 0.04 K/uL (0-0.2); Basophils % (auto) 0.2 %; Eosinophils # (auto) 0.14 K/uL (0-0.50); Eosinophils % (auto) 0.8 %; Hematocrit (blood only) 41.3 % (42.0-52.0); Hemoglobin 14.3 g/dl (14.0-18.0); Immature Granulocytes # (auto) 0.07 K/uL (0.01-0.20); Immature Granulocytes % (auto) 0.4 %; Lymphocytes # (auto) 3.15 K/uL (1.2-3.4); Lymphocytes % (auto) 18.9 %; Mean Corpuscular Hgb Conc 34.6 g/dL (32.0-36.0); Mean Corpuscular Volume 83.8 fL (80.0-100.0); Mean Platelet Volume 10.7 fL (9.4-12.4); Monocytes # (auto) 1.13 K/uL (0.11-0.59); Monocytes % (auto) 6.8 %; Neutrophils # (auto) 12.11 K/uL (1.40-6.50); Neutrophils % (auto) 72.9 %; Platelet Count 235 K/uL (130-400); RDW Coefficient of Variation 13.5 % (11.5-14.5); RDW Standard Deviation 41.2 fL (36.4-46.3); Red Blood Count 4.93 M/uL (4.70-6.10); White Blood Count 16.64 K/ul (4.8-10.8)
[2023-06-22 02:05] LABS: Appearance Urine Clear (Clear); Bacteria Urine Automated Negative (Negative); Bilirubin Urine Negative (Negative); Blood Urine 2+ (Negative); Color Urine Dark Yellow; Epithelial Cell Urine Auto 20-30 /lpf (0-5); Glucose Urine UA 2+ (Negative); Ketones Urine Trace (Negative); Leukocyte Esterase Urine Negative (Negative); Nitrite Urine Negative (Negative); Protein Urine 1+ (Negative); RBC Urine Automated 0-4 /hpf (0-4); Specific Gravity Urine 1.026 (1.000-1.030); Urobilinogen Urine Negative (Negative); pH Urine 5.5 (4.5-7.5)
[2023-06-22 02:21] LABS: Albumin Globulin Ratio 1.3 (0.9-2); Albumin Level 4.2 gm/dl (3.4-5.0); BUN Creatinine Ratio 12.6 (10-20); Bilirubin,Total 0.9 mg/dl (0.2-1.0); Creatinine Clr Calc Pharmacy 81.4 ml/min; Est GFR (African American) 88.5 ml/min; Est GFR (Non-African American) 76.4 ml/min; Globulin 3.2 gm/dl (2.5-4.0); Potassium 3.8 mmol/L (3.5-5.1); Total Protein 7.4 gm/dl (6.0-8.3)
[2023-06-22] MEDS ORDERED: OPTIRAY 320 100ml IV ONE (02:46)
[2023-06-22] MEDS ORDERED: HYDROmorphone INJ 0.5 MG/0.5 ML SYR IV PRN (02:46)
[2023-06-22] MEDS ORDERED: PIPERACILLIN/TAZOBACTAM 4.5 GM/120 ML BAG IV ONE (03:34)
--- NOTE | 2023-06-22 05:02 | CT Scan Report ---
Exam(s): CT ABDOMEN + PELVIS With Contrast IV Amt: 93 cc's EXAM: CT Abdomen and Pelvis With Intravenous Contrast CLINICAL HISTORY: Reason for exam: rlq pain. TECHNIQUE: Axial computed tomography images of the abdomen and pelvis with intravenous contrast. CTDI is 28.02 mGy and DLP is 1500.96 mGy-cm. Automated exposure control was utilized for the study. A dose lowering technique was utilized adhering to the principles of ALARA. CONTRAST: Patient received 93 cc's of IV contrast COMPARISON: CT abdomen/pelvis on 12/04/2011 FINDINGS: Lung bases: Mild bibasilar atelectasis. Heart: Coronary artery and aortic Calcifications. Mediastinum: Fluid in the visualized distal esophagus, with mild prominence of the esophageal wall, concerning for esophagitis. ABDOMEN: Liver: Unremarkable. No mass. Gallbladder and bile ducts: Cholelithiasis in a mildly distended gallbladder. Nonspecific mild biliary dilatation. Common bile duct measures 10.8 mm in diameter. Further evaluation could be performed with ERCP or MRCP if clinically indicated. Pancreas: Mild atrophy of the pancreas. No ductal dilation. Spleen: Unremarkable. No splenomegaly. Adrenals: Unremarkable. No mass. Kidneys and ureters: Bilateral renal cysts. No hydronephrosis or obstructing stone. Stomach and bowel: Diverticulosis without evidence of diverticulitis. No obstruction. PELVIS: Appendix: Mild prominence of the appendix with associated inflammatory changes, concerning for acute appendicitis. Appendix measures approximately 1.0 cm in diameter. Bladder: Mild prominence of the bladder wall is nonspecific. Please correlate with urinalysis if concerned for cystitis. Reproductive: Unremarkable as visualized. ABDOMEN and PELVIS: Intraperitoneal space: Unremarkable. No free air. No significant fluid collection. Bones/joints: Degenerative changes of the spine. No acute fracture. No dislocation. Soft tissues: Unremarkable. Vasculature: Phleboliths in the pelvis. Atherosclerotic changes of the vasculature. No aortic aneurysm or dissection. Lymph nodes: Unremarkable. No enlarged lymph nodes. IMPRESSION: 1. Mild prominence of the appendix with associated inflammatory changes, concerning for acute appendicitis. Appendix measures approximately 1.0 cm in diameter. 2. Fluid in the visualized distal esophagus, with mild prominence of the esophageal wall, concerning for esophagitis. 3. Mild prominence of the bladder wall is nonspecific. Please correlate with urinalysis if concerned for cystitis. 4. Cholelithiasis in a mildly distended gallbladder. 5. Nonspecific mild biliary dilatation. Common bile duct measures 10.8 mm in diameter. Further evaluation could be performed with ERCP or MRCP if clinically indicated. Communications: Call Doctor Douglas Electronically signed by: Korey Zamora M.D. 06/22/23 05:01 AM
--- NOTE | 2023-06-22 05:27 | History & Physical Report ---
Date of Service June 22, 2023 Assessment & Plan (1) Acute appendicitis: Plan: Due to the patient's clinical presentation and findings on imaging we will proceed as follows: We are tentatively planning on performing an appendectomy with Dr. Oviedo on 06/22/2023. Analgesia will be provided Antiemetics will be provided We will provide hydration with IV fluids We will keep the patient n.p.o. in the perioperative timeframe The treating emergency room clinician has already administered Zosyn and this medicine will continue Due to the patient's underlying diabetes and use of insulin we will request a hospitalist consultation to assist with this condition A COVID test is pending we will follow for the results of these Additional recommendations be forthcoming based on operative findings and his postoperative recovery thereafter SCDs alone will be used for DVT prevention, no chemical means due to planned surgery The patient be a level 1 full code History of Present Illness Chief Complaint: Abdominal pain Primary Care Provider: Eliz Davey MD This is a 77-year-old male who developed abdominal pain approximately 12 hours ago. Patient notes that the pain is always been in the right lower quadrant without radiation. He does not note any palliative or provocative factors other than that the pain is somewhat relieved with medicines administered in the emergency department. He has had prior abdominal surgeries in the form of an inguinal hernia. With his current presentation he has had some nausea and vomiting but denies any fevers, shakes, or chills. It is noteworthy to mention that the patient has coronary artery disease having undergone a cardiac catheterization approximately 10 years ago. Patient says that he did not suffer a heart attack prior to having the stent placed. He notes that he does take Plavix but he only takes it on Tuesdays and Saturdays, making his most recent dose approximately 3 days ago. The patient notes that he does lead an active lifestyle and is able to golf several times per week without any chest pain or shortness of breath limiting his activity. Patient most recently saw his lan specialist, Dr. Lazo, on 06/17/2023. At this time the patient was noted to have stable exercise tolerance without any anginal or anginal equivalent symptoms. Since arrival to the hospital the patient has had labs and imaging which I independent reviewed. CT scan of the abdomen pelvis showed the patient had a prominent appendix with associated inflammatory changes. The appendix measured approximately 1.0 cm in diameter and these findings were concerning for acute appendicitis. Patient was noted to have some nonspecific biliary dilatation with the common bile duct measuring 10.8 mm. He did have gallstones with a mildly distended gallbladder but no other findings of acute cholecystitis were noted. Labs include a CBC her white blood cell count was elevated at 16.6. Hemoglobin and hematocrit are 14.3 and 41.3. Platelet count was 235,000. Chemistry profile showed sodium, potassium, BUN, and creatinine were all within normal range. There is no elevation of patient's LFTs. A urinalysis was not indicative of infection. A COVID test is pending. An EKG showed normal sinus rhythm. There did not appear to be any changes indicative of acute ischemia. Chest x-ray did not show any evidence of pneumonia or pleural effusions. At the time of my interview the patient was resting comfortably in bed he was in no distress. Allergies Allergy/AdvReac Type Severity Reaction Status Date / Time codeine AdvReac Nausea Verified 06/22/23 05:36 Home Medications Medication Instructions Recorded Confirmed Type atorvastatin 40 mg tablet 40 mg PO QPM #30 tabs 09/02/19 06/22/23 History lisinopril 20 mg tablet 20 mg PO BID #180 tabs 09/02/19 06/22/23 History metformin 1,000 mg tablet 1,000 mg PO BID 09/02/19 06/22/23 History metoprolol succinate 50 mg 50 mg PO BID 09/02/19 06/22/23 History tablet,extended release 24 hr psyllium husk 0.4 gram capsule 0.4 g PO DAILY 05/22/21 06/22/23 History (Metamucil) docusate sodium 100 mg capsule 100 mg PO BID 12/22/21 06/22/23 History (Stool Softener) furosemide 40 mg tablet 40 mg PO QAM 12/22/21 06/22/23 History albuterol sulfate 90 mcg/actuation 2 inha inhalation QID PRN 10/01/22 06/22/23 Rx aerosol inhaler shortness of breath or wheezing #6.7 grams aspirin 81 mg tablet,delayed 81 mg PO DAILY 10/01/22 06/22/23 History release ferrous sulfate 325 mg (65 mg 325 mg PO Q OTHER DAY 10/01/22 06/22/23 History iron) tablet ipratropium bromide 21 mcg (0.03 2 spray intranasal BID 10/01/22 06/22/23 History %) nasal spray [id number] tablet 1 tab PO DAILY 10/01/22 06/22/23 History niacin 500 mg capsule,extended 500 mg PO DAILY 10/01/22 06/22/23 History release saliva substitute combo no.9 1 ea PO DIRECTED PRN Dry Mouth 10/01/22 06/22/23 History (Biotene Dry Mouth Oral Rinse mouthwash) tamsulosin 0.4 mg capsule 0.4 mg PO DAILY 10/05/22 06/22/23 History pantoprazole 20 mg tablet,delayed 20 mg PO DAILY #90 tabs 11/14/22 06/22/23 Rx release trospium 20 mg tablet 20 mg PO BID 90 days #180 tabs 01/09/23 06/22/23 Rx famotidine 20 mg tablet 20 mg PO BID #90 tabs 01/29/23 06/22/23 Rx finasteride 5 mg tablet 5 mg PO DAILY #90 tabs 02/04/23 06/22/23 Rx fluticasone propionate 50 2 spray intranasal DAILY PRN nasal 02/14/23 06/22/23 Rx mcg/actuation nasal congestion #48 grams spray,suspension clopidogrel 75 mg tablet 75 mg PO 2XWK #30 tabs 05/20/23 06/22/23 Rx insulin glargine 100 unit/mL See Rx Instructions subcut UD 06/17/23 06/22/23 History subcutaneous solution dulaglutide 4.5 mg/0.5 mL 4.5 mg subcut WK 06/22/23 06/22/23 History subcutaneous pen injector (Trulicity) repaglinide 2 mg tablet 2 mg PO DAILY 06/22/23 06/22/23 History Past Med/Surg History Medical History Acid reflux Acute hypoxemic respiratory failure due to COVID-19 CAD (coronary artery disease) COVID-19 Diabetes Dyslipidemia Enlarged prostate [place] (hard of hearing) HTN (hypertension) BORDERLINE Presence of drug coated stent in LAD coronary artery PT NOT SURE IF DRUG COATED Surgical History History of back surgery History of cataract surgery History of colonoscopy History of heart artery stent X1 - [facility] History of hernia repair History of repair of rotator cuff PT NOT SURE History of total right knee replacement X2 S/P lumbar laminectomy Family History Other Coronary heart disease Social History Smoking Status: Never smoker Second Hand Exposure: No; Do You Dip or Chew Tobacco: No; Hx Alcohol Use: No Hx Substance Use: No Preferred Language: Argentine Communication Ability: Effective Italian Tutor Required: No Beliefs That Will Affect Care: None marital status: Current Living Situation: Spouse current occupational status: retired Feels Safe at Home: Yes Assistive Devices: BiPap and Glasses Review of Systems Constitutional: no fever and no chills Ear, Nose, Mouth, Throat: no hearing loss Respiratory: no cough and no dyspnea Cardiovascular: no chest pain Gastrointestinal: as per Subjective / HPI Genitourinary: no dysuria Musculoskeletal: no back pain Integumentary: no rash Neurologic: no localized weakness Physical Exam Constitutional: WD/WN, vitals as above Eyes: no conjunctival abnormality ENMT: Ears: no hearing impairment and no external ear abnormality Mouth: no oropharynx abnormality Neck: trachea midline Respiratory: normal respiratory effort and + respiratory distress; no labored breathing No wheezing noted Cardiovascular: Rate/Rhythm: regular rate and regular rhythm Gastrointestinal (Abdomen): Abdomen is rotund and minimally distended. There is no rebound tenderness or guarding but patient did have pain with palpation in the right lower quadrant over McBurney's point Musculoskeletal: No calf tenderness Skin: no rashes Neurologic: moves all extremities Psychiatric: A+Ox3, euthymic affect Results & Data Results & Data Vital Signs (Past 12 Hours) Vital Signs Temp Pulse Resp BP Pulse Ox O2 Del Method O2 Flow Rate 06/22/23 05:00 94 H 23 97 2 06/22/23 04:51 98 H 06/22/23 04:00 90 22 98 2 06/22/23 04:00 146/81 H 06/22/23 03:30 87 24 97 2 06/22/23 03:30 146/92 H 06/22/23 03:00 89 24 87 L 0 06/22/23 03:00 133/80 06/22/23 02:55 89 26 H 95 06/22/23 03:17 87 L Room Air 0 06/22/23 03:05 89 06/22/23 01:37 92 Room Air 06/22/23 01:24 36.4 C L 82 18 143/86 H 94 Room Air Supervising Physician Co-Signing Physician Notes Patient seen and examined, labs and imaging reviewed, agree with above. 77-year-old male presented with signs symptoms of acute appendicitis, confirmed by CT scan. On exam he is afebrile with stable vitals, tender to palpation in the right lower quadrant. WBC elevated. CT scan personally reviewed and interpreted and agree with the assessment of acute appendicitis without evidence of complication. He does have a cardiac history with stent placement back in 2011 and is currently on Plavix, however he only takes this a few times a week and most recently took it on Saturday. He also was recent seen by his lan specialist and is having no anginal symptoms. Plan for laparoscopic appendectomy Risks of the procedure were discussed to include but not limited to bleeding, infection, conversion open, damage surrounding structures, normal appendix, need for future more extensive surgery, abscess, and the risk of anesthesia Potential discharge this afternoon Wound care instructions, activity restrictions, and return precautions given Patient to follow-up in general surgery clinic in 2 weeks PG Care Time/CCT Total # of Minutes Spent Total Time Spent with Patient: Total time spent is greater than 50% in coordination of care (as documented) at patient's floor/unit and/or counseling patient: Coding Level of Care Code 75950 INT INP/OBS CARE 3/75MIN Diagnoses Acute appendicitis K35.30 Acute appendicitis type: with localized peritonitis Appendicitis abscess presence: without abscess Appendicitis gangrene presence: unspecified whether gangrene present Appendicitis perforation presence: unspecified whether perforation present (1) Acute appendicitis Acute appendicitis type: with localized peritonitis Appendicitis abscess presence: without abscess Appendicitis gangrene presence: unspecified whether gangrene present Appendicitis perforation presence: unspecified whether perforation present Qualified Code(s): K35.30 - Acute appendicitis with localized peritonitis, without perforation or gangrene
[2023-06-22] MEDS ORDERED: ONDANSETRON INJ 2 MG/ML 2 ML VIAL IV PRN ×2 (05:30→08:02)
[2023-06-22] MEDS ORDERED: ACETAMINOPHEN 1,000 MG/100 ML VIAL IV PRN (05:30)
[2023-06-22] MEDS ORDERED: LACTATED RINGER'S 1,000 ML IV SCH (05:30)
[2023-06-22] MEDS ORDERED: GLUCOSE 10 TAB/TUBE PO PRN (05:43)
[2023-06-22] MEDS ORDERED: CARBOHYDRATES FOR HYPOGLYCEMIA PO PRN (05:43)
[2023-06-22] MEDS ORDERED: DEXTROSE 50% 50 ML SYRINGE IV PRN (05:43)
[2023-06-22] MEDS ORDERED: PHARMACY GLYCEMIC MGMT CONSULT PRN (05:43)
[2023-06-22] MEDS ORDERED: GLUCOSE 40% GEL 15 GM TUBE PO PRN (05:43)
[2023-06-22] MEDS ORDERED: GLUCAGON FOR INJ 1 MG VIAL SQ PRN (05:43)
[2023-06-22] MEDS ORDERED: FLUTICASONE PROPIONATE NA SPR 16 GM BTL PRN (05:44)
[2023-06-22] MEDS ORDERED: ALBUTEROL HFA 8 GM INHALER INH PRN (05:44)
[2023-06-22] MEDS ORDERED: hydrALAZINE HCL 20 MG/ML VIAL IV PRN (05:47)
[2023-06-22] MEDS ORDERED: INSULIN ASPART PER UNIT CHARGE SC STA ×3 (06:08→07:15)
--- NOTE | 2023-06-22 06:30 | Consultation ---
Date of Consultation June 22, 2023 Assessment & Plan (1) Acute appendicitis: 77-year-old presents with acute appendicitis Acute appendicitis N.p.o., IV fluids, IV Zosyn, IV pain medications as needed Plan for surgery soon patient should be at acceptable risk for surgery History of CAD s/p stent in 2011 Holding p.o. medications metoprolol succinate, aspirin and statin and Plavix 2 times a week Placed on IV Lopressor with holding parameters Restart p.o. medication as soon as possible Hypertension Placed on IV Lopressor with holding parameters Holding lisinopril and metoprolol succinate Restart home medication as soon as possible To DC IV Lopressor with p.o. meds, started Closely monitor the blood pressure Obstructive sleep apnea CPAP nightly will be ordered Not using for last 3 nights because his machine broke Diabetes Hold metformin and repaglinide At home on Lantus 58 units in a.m. and 18 units in p.m. Currently n.p.o. and sugars at 200 Placed on Lantus 30 units twice daily and insulin sliding scale Glycemic pharmacy consult Close monitor and adjust insulin regimen Adjust insulin regimen when patient starts on diet GERD Place currently on IV Pepcid twice daily Restart home meds when able Hyperlipidemia Restart statin as soon as possible BPH Overactive bladder urge Incontinence Holding Flomax and trospium and Proscar Restart as soon as possible DVT prophylaxis per surgery Disposition as per surgery History of Present Illness Reason for Consultation: Acute appendicitis History of Present Illness 77-year-old male past med significant for diabetes, obstructive sleep apnea, hypertension, morbid obesity, history of COVID history of patient with cardiomyopathy, GERD, BPH, overactive bladder, history of CAD s/p stent in 2011 presents with right lower quadrant abdominal pain and found to have acute appendicitis. We are consulted for medical management. Patient states since yesterday afternoon having right lower quadrant abdominal pain. Had 1 episode of vomiting yesterday around 7 PM with dry heaves. Went to sleep but pain got worse so came to ER. The pain medication currently pain is under control. Denies any fevers. He had normal bowel movements yesterday. Normal bladder movements. Denies any chest pain or shortness of breath. No headache. Has some runny nose since yesterday. No cough. No sore throat. Currently modiolus are stable. Past medical history as mentioned above Past surgical history right knee replacement, cardiac cath with stent placement Social history no smoking, no alcohol, no drugs Family history no family history on file Allergies Allergy/AdvReac Type Severity Reaction Status Date / Time codeine AdvReac Nausea Verified 06/22/23 05:36 Home Medications Medication Instructions Recorded Confirmed Type atorvastatin 40 mg tablet 40 mg PO QPM #30 tabs 09/02/19 06/22/23 History lisinopril 20 mg tablet 20 mg PO BID #180 tabs 09/02/19 06/22/23 History metformin 1,000 mg tablet 1,000 mg PO BID 09/02/19 06/22/23 History metoprolol succinate 50 mg 50 mg PO BID 09/02/19 06/22/23 History tablet,extended release 24 hr psyllium husk 0.4 gram capsule 0.4 g PO DAILY 05/22/21 06/22/23 History (Metamucil) docusate sodium 100 mg capsule 100 mg PO BID 12/22/21 06/22/23 History (Stool Softener) furosemide 40 mg tablet 40 mg PO QAM 12/22/21 06/22/23 History albuterol sulfate 90 mcg/actuation 2 inha inhalation QID PRN 10/01/22 06/22/23 Rx aerosol inhaler shortness of breath or wheezing #6.7 grams aspirin 81 mg tablet,delayed 81 mg PO DAILY 10/01/22 06/22/23 History release ferrous sulfate 325 mg (65 mg 325 mg PO Q OTHER DAY 10/01/22 06/22/23 History iron) tablet ipratropium bromide 21 mcg (0.03 2 spray intranasal BID 10/01/22 06/22/23 History %) nasal spray [id number] tablet 1 tab PO DAILY 10/01/22 06/22/23 History niacin 500 mg capsule,extended 500 mg PO DAILY 10/01/22 06/22/23 History release saliva substitute combo no.9 1 ea PO DIRECTED PRN Dry Mouth 10/01/22 06/22/23 History (Biotene Dry Mouth Oral Rinse mouthwash) tamsulosin 0.4 mg capsule 0.4 mg PO DAILY 10/05/22 06/22/23 History pantoprazole 20 mg tablet,delayed 20 mg PO DAILY #90 tabs 11/14/22 06/22/23 Rx release trospium 20 mg tablet 20 mg PO BID 90 days #180 tabs 01/09/23 06/22/23 Rx famotidine 20 mg tablet 20 mg PO BID #90 tabs 01/29/23 06/22/23 Rx finasteride 5 mg tablet 5 mg PO DAILY #90 tabs 02/04/23 06/22/23 Rx fluticasone propionate 50 2 spray intranasal DAILY PRN nasal 02/14/23 06/22/23 Rx mcg/actuation nasal congestion #48 grams spray,suspension clopidogrel 75 mg tablet 75 mg PO 2XWK #30 tabs 05/20/23 06/22/23 Rx insulin glargine 100 unit/mL See Rx Instructions subcut UD 06/17/23 06/22/23 History subcutaneous solution dulaglutide 4.5 mg/0.5 mL 4.5 mg subcut WK 06/22/23 06/22/23 History subcutaneous pen injector (Trulicity) repaglinide 2 mg tablet 2 mg PO DAILY 06/22/23 06/22/23 History Patient History Medical History Acid reflux Acute hypoxemic respiratory failure due to COVID-19 CAD (coronary artery disease) COVID-19 Diabetes Dyslipidemia Enlarged prostate [place] (hard of hearing) HTN (hypertension) BORDERLINE Presence of drug coated stent in LAD coronary artery PT NOT SURE IF DRUG COATED Surgical History History of back surgery History of cataract surgery History of colonoscopy History of heart artery stent X1 - [facility] History of hernia repair History of repair of rotator cuff PT NOT SURE History of total right knee replacement X2 S/P lumbar laminectomy Family History Other Coronary heart disease Social History Smoking Status: Never smoker Second Hand Exposure: No; Do You Dip or Chew Tobacco: No; Hx Alcohol Use: No Hx Substance Use: No Preferred Language: Tajik Communication Ability: Effective International Bank Manager Required: No Beliefs That Will Affect Care: None marital status: Current Living Situation: Spouse current occupational status: retired Feels Safe at Home: Yes Assistive Devices: BiPap and Glasses Review of Systems Review of Systems: All systems reviewed & are unremarkable except as noted in Subjective Physical Exam Physical Exam: General- Not in distress Head- atraumatic Eyes- PERRL ENT- oropharynx clear Neck- supple, no JVD, Lungs- clear to auscultation and percussion no added sounds Heart- regular rate and rhythm; no murmur, no gallop, Abdomen- normal bowel sounds, soft, mild tenderness in RLQ region, no guarding Extremities- no pretibial edema, no erythema seen. Neuro- alert, oriented x 3; PERRL, no facial palsy; no dysarthria; insight is ok. obeys commands. Skin- warm & dry Results & Data Vital Signs (Past 12 Hours) Vital Signs Temp Pulse Resp BP Pulse Ox O2 Del Method O2 Flow Rate 06/22/23 05:00 94 H 23 97 2 06/22/23 04:51 98 H 06/22/23 04:00 90 22 98 2 06/22/23 04:00 146/81 H 06/22/23 03:30 87 24 97 2 06/22/23 03:30 146/92 H 06/22/23 03:00 89 24 87 L 0 06/22/23 03:00 133/80 06/22/23 02:55 89 26 H 95 06/22/23 03:17 87 L Room Air 0 06/22/23 03:05 89 06/22/23 01:37 92 Room Air 06/22/23 01:24 36.4 C L 82 18 143/86 H 94 Room Air Diagnostic Findings Laboratory Results WBC 16.64 K/ul (4.8-10.8) H 06/22/23 01:52 RBC 4.93 M/uL (4.70-6.10) 06/22/23 01:52 Hgb 14.3 g/dl (14.0-18.0) 06/22/23 01:52 Hct 41.3 % (42.0-52.0) L 06/22/23 01:52 MCV 83.8 fL (80.0-100.0) 06/22/23 01:52 MCH 29.0 pg (25.0-34.0) 06/22/23 01:52 MCHC 34.6 g/dL (32.0-36.0) 06/22/23 01:52 RDW Std Deviation 41.2 fL (36.4-46.3) 06/22/23 01:52 RDW Coeff of Sherri 13.5 % (11.5-14.5) 06/22/23 01:52 Plt Count 235 K/uL (130-400) 06/22/23 01:52 MPV 10.7 fL (9.4-12.4) 06/22/23 01:52 Immature Gran % (Auto) 0.4 % 06/22/23 01:52 Neut % (Auto) 72.9 % 06/22/23 01:52 Lymph % (Auto) 18.9 % 06/22/23 01:52 [place] % (Auto) 6.8 % 06/22/23 01:52 Eos % (Auto) 0.8 % 06/22/23 01:52 Baso % (Auto) 0.2 % 06/22/23 01:52 Neut # (Auto) 12.11 K/uL (1.40-6.50) H 06/22/23 01:52 Lymph # (Auto) 3.15 K/uL (1.2-3.4) 06/22/23 01:52 [place] # (Auto) 1.13 K/uL (0.11-0.59) H 06/22/23 01:52 Eos # (Auto) 0.14 K/uL (0-0.50) 06/22/23 01:52 Baso # (Auto) 0.04 K/uL (0-0.2) 06/22/23 01:52 Immature Gran # (Auto) 0.07 K/uL (0.01-0.20) 06/22/23 01:52 Sodium 136 mmol/L (136-145) 06/22/23 01:52 Potassium 3.8 mmol/L (3.5-5.1) 06/22/23 01:52 Chloride 101 mmol/L (98-107) 06/22/23 01:52 Carbon Dioxide 24 mmol/L (21-32) 06/22/23 01:52 Anion Gap 11 (3-11) 06/22/23 01:52 BUN 12 mg/dl (6-23) 06/22/23 01:52 Creatinine 0.95 mg/dl (0.6-1.4) 06/22/23 01:52 Est Cr Clr Drug Dosing 81.4 ml/min 06/22/23 01:52 Est GFR ( Amer) 88.5 ml/min 06/22/23 01:52 Est GFR (Non-Af Amer) 76.4 ml/min 06/22/23 01:52 BUN/Creatinine Ratio 12.6 (10-20) 06/22/23 01:52 Glucose 226 mg/dl (70-99(Fasting)) H 06/22/23 01:52 Calcium 9.0 mg/dl (8.6-10.3) 06/22/23 01:52 Total Bilirubin 0.9 mg/dl (0.2-1.0) 06/22/23 01:52 AST 17 U/L (13-39) 06/22/23 01:52 ALT 22 U/L (7-52) 06/22/23 01:52 Alkaline Phosphatase 96 U/L (34-104) 06/22/23 01:52 Total Protein 7.4 gm/dl (6.0-8.3) 06/22/23 01:52 Albumin 4.2 gm/dl (3.4-5.0) 06/22/23 01:52 Globulin 3.2 gm/dl (2.5-4.0) 06/22/23 01:52 Albumin/Globulin Ratio 1.3 (0.9-2) 06/22/23 01:52 Lipase 19 U/L (11-82) 06/22/23 01:52 Urine Color Dark Yellow 06/22/23 01:30 Urine Appearance Clear (Clear) 06/22/23 01:30 Urine pH 5.5 (4.5-7.5) 06/22/23 01:30 Ur Specific [place] 1.026 (1.000-1.030) 06/22/23 01:30 Urine Protein 1+ (Negative) H 06/22/23 01:30 Urine Glucose (UA) 2+ (Negative) H 06/22/23 01:30 Urine Ketones Trace (Negative) H 06/22/23 01:30 Urine Blood 2+ (Negative) H 06/22/23 01:30 Urine Nitrite Negative (Negative) 06/22/23 01:30 Urine Bilirubin Negative (Negative) 06/22/23 01:30 Urine Urobilinogen Negative (Negative) 06/22/23 01:30 Ur Leukocyte Esterase Negative (Negative) 06/22/23 01:30 Urine WBC (Auto) 1-5 /hpf (0-5) 06/22/23 01:30 Urine RBC (Auto) 0-4 /hpf (0-4) 06/22/23 01:30 U Hyaline Cast (Auto) 5-10 /lpf (0-5) H 06/22/23 01:30 U Epithel Cells (Auto) 20-30 /lpf (0-5) H 06/22/23 01:30 Urine Bacteria (Auto) Negative (Negative) 06/22/23 01:30 Impressions Abdomen/Pelvis CT 06/22/23 01:37 CR Exam(s): CT ABDOMEN + PELVIS With Contrast IV Amt: 93 cc's EXAM: CT Abdomen and Pelvis With Intravenous Contrast CLINICAL HISTORY: Reason for exam: rlq pain. TECHNIQUE: Axial computed tomography images of the abdomen and pelvis with intravenous contrast. CTDI is 28.02 mGy and DLP is 1500.96 mGy-cm. Automated exposure control was utilized for the study. A dose lowering technique was utilized adhering to the principles of ALARA. CONTRAST: Patient received 93 cc's of IV contrast COMPARISON: CT abdomen/pelvis on 12/04/2011 FINDINGS: Lung bases: Mild bibasilar atelectasis. Heart: Coronary artery and aortic Calcifications. Mediastinum: Fluid in the visualized distal esophagus, with mild prominence of the esophageal wall, concerning for esophagitis. ABDOMEN: Liver: Unremarkable. No mass. Gallbladder and bile ducts: Cholelithiasis in a mildly distended gallbladder. Nonspecific mild biliary dilatation. Common bile duct measures 10.8 mm in diameter. Further evaluation could be performed with ERCP or MRCP if clinically indicated. Pancreas: Mild atrophy of the pancreas. No ductal dilation. Spleen: Unremarkable. No splenomegaly. Adrenals: Unremarkable. No mass. Kidneys and ureters: Bilateral renal cysts. No hydronephrosis or obstructing stone. Stomach and bowel: Diverticulosis without evidence of diverticulitis. No obstruction. PELVIS: Appendix: Mild prominence of the appendix with associated inflammatory changes, concerning for acute appendicitis. Appendix measures approximately 1.0 cm in diameter. Bladder: Mild prominence of the bladder wall is nonspecific. Please correlate with urinalysis if concerned for cystitis. Reproductive: Unremarkable as visualized. ABDOMEN and PELVIS: Intraperitoneal space: Unremarkable. No free air. No significant fluid collection. Bones/joints: Degenerative changes of the spine. No acute fracture. No dislocation. Soft tissues: Unremarkable. Vasculature: Phleboliths in the pelvis. Atherosclerotic changes of the vasculature. No aortic aneurysm or dissection. Lymph nodes: Unremarkable. No enlarged lymph nodes. IMPRESSION: 1. Mild prominence of the appendix with associated inflammatory changes, concerning for acute appendicitis. Appendix measures approximately 1.0 cm in diameter. 2. Fluid in the visualized distal esophagus, with mild prominence of the esophageal wall, concerning for esophagitis. 3. Mild prominence of the bladder wall is nonspecific. Please correlate with urinalysis if concerned for cystitis. 4. Cholelithiasis in a mildly distended gallbladder. 5. Nonspecific mild biliary dilatation. Common bile duct measures 10.8 mm in diameter. Further evaluation could be performed with ERCP or MRCP if clinically indicated. Communications: Call Doctor Appendicitis Electronically signed by: Korey Zamora M.D. 06/22/23 05:01 AM ECG Additional Comments: ECG normal sinus rhythm at rate of 93. Right bundle-branch block. (1) Acute appendicitis Acute appendicitis type: with localized peritonitis Appendicitis abscess presence: without abscess Appendicitis gangrene presence: unspecified whether gangrene present Appendicitis perforation presence: unspecified whether perforation present Qualified Code(s): K35.30 - Acute appendicitis with localized peritonitis, without perforation or gangrene
[2023-06-22] MEDS ORDERED: PROPOFOL IV EMULSION 10 MG/ML 20 ML VIAL IV ONE (06:57)
[2023-06-22] MEDS ORDERED: BUPIVACAINE 0.5 % 5 MG/1 ML MPF 30ML VIAL ONE (06:57)
[2023-06-22] MEDS ORDERED: LIDOCAINE 2% 2 ML VIAL/AMP(20MG/ML) INFIL ONE (06:57)
[2023-06-22] MEDS ORDERED: fentaNYL citrate PF 100 MCG/2 ML VIAL ONE ×3 (06:57→09:16)
[2023-06-22] MEDS ORDERED: ONDANSETRON INJ 2 MG/ML 2 ML VIAL ONE (06:57)
[2023-06-22] MEDS ORDERED: NEOSTIGMINE METHYLSULFATE 1 MG/ML 10ML VIAL ONE (06:57)
[2023-06-22] MEDS ORDERED: ROCURONIUM BROMIDE 10 MG/ML 5 ML VIAL IV ONE ×5 (06:59→07:05)
[2023-06-22] MEDS ORDERED: SUCCINYLCHOLINE CHLORIDE 20 MG/ML 10 ML VIAL IV ONE (07:05)
[2023-06-22] MEDS ORDERED: LANTUS PER UNIT CHARGE SQ ONE ×2 (07:15→14:45)
--- NOTE | 2023-06-22 07:57 | XRay Report ---
SINGLE VIEW CHEST CLINICAL HISTORY: Preoperative examination FINDINGS: An AP, portable, upright chest radiograph is compared to study dated 10/05/2022. The heart is enlarged noting atherosclerotic calcification of the thoracic aorta. The pulmonary vasculature is noncongested. Scarring/atelectasis is seen at the lung bases. No airspace consolidation or large pleu ral effusion is identified. No pneumothorax is seen. The skeletal structures are osteopenic. The bony thorax is grossly intact. IMPRESSION: Cardiomegaly with no acute cardiopulmonary abnormality identified. ACT 112: Negative or not required by law. Electronically signed by: Blue Kahn M.D. 06/22/2023 7:54 AM
--- NOTE | 2023-06-22 07:58 | Anesthesiology Consultation ---
Date of Service June 22, 2023 Assessment & Plan Chart Review Chart Review: Acceptable Risk for Surgery Consults Requested none History Surgery Operation Date: 06/22/23 07:30 Proposed Procedures p Laparoscopic Appendectomy - Juan David Oviedo DO, FACS Height/Weight Height: 5 ft 10 in Weight: 115.1 kg Allergies Allergy/AdvReac Type Severity Reaction Status Date / Time codeine AdvReac Nausea Verified 06/22/23 05:36 Medications Home Medications Medication Instructions Recorded Confirmed Last Taken atorvastatin 40 mg tablet 40 mg PO QPM #30 tabs 09/02/19 06/22/23 10/04/22 lisinopril 20 mg tablet 20 mg PO BID #180 tabs 09/02/19 06/22/23 10/05/22 metformin 1,000 mg tablet 1,000 mg PO BID 09/02/19 06/22/23 10/05/22 metoprolol succinate 50 mg 50 mg PO BID 09/02/19 06/22/23 10/05/22 tablet,extended release 24 hr psyllium husk 0.4 gram capsule 0.4 g PO DAILY 05/22/21 06/22/23 10/04/22 (Metamucil) docusate sodium 100 mg capsule 100 mg PO BID 12/22/21 06/22/23 10/05/22 (Stool Softener) furosemide 40 mg tablet 40 mg PO QAM 12/22/21 06/22/23 10/04/22 albuterol sulfate 90 mcg/actuation 2 inha inhalation QID PRN 10/01/22 06/22/23 10/05/22 aerosol inhaler shortness of breath or wheezing #6.7 grams aspirin 81 mg tablet,delayed 81 mg PO DAILY 10/01/22 06/22/23 10/05/22 release ferrous sulfate 325 mg (65 mg 325 mg PO Q OTHER DAY 10/01/22 06/22/23 10/01/22 iron) tablet ipratropium bromide 21 mcg (0.03 2 spray intranasal BID 10/01/22 06/22/23 10/05/22 %) nasal spray [id number] tablet 1 tab PO DAILY 10/01/22 06/22/23 10/04/22 niacin 500 mg capsule,extended 500 mg PO DAILY 10/01/22 06/22/23 10/04/22 release saliva substitute combo no.9 1 ea PO DIRECTED PRN Dry Mouth 10/01/22 06/22/23 10/05/22 (Biotene Dry Mouth Oral Rinse mouthwash) tamsulosin 0.4 mg capsule 0.4 mg PO DAILY 10/05/22 06/22/23 Unknown pantoprazole 20 mg tablet,delayed 20 mg PO DAILY #90 tabs 11/14/22 06/22/23 Unknown release trospium 20 mg tablet 20 mg PO BID 90 days #180 tabs 01/09/23 06/22/23 Unknown famotidine 20 mg tablet 20 mg PO BID #90 tabs 01/29/23 06/22/23 Unknown finasteride 5 mg tablet 5 mg PO DAILY #90 tabs 02/04/23 06/22/23 Unknown fluticasone propionate 50 2 spray intranasal DAILY PRN nasal 02/14/23 06/22/23 Unknown mcg/actuation nasal congestion #48 grams spray,suspension clopidogrel 75 mg tablet 75 mg PO 2XWK #30 tabs 05/20/23 06/22/23 Unknown insulin glargine 100 unit/mL See Rx Instructions subcut UD 06/17/23 06/22/23 Unknown subcutaneous solution dulaglutide 4.5 mg/0.5 mL 4.5 mg subcut WK 06/22/23 06/22/23 Unknown subcutaneous pen injector (Trulicity) repaglinide 2 mg tablet 2 mg PO DAILY 06/22/23 06/22/23 Unknown Active Medications Generic Name Dose Route Start Last Admin Trade Name Freq PRN Reason Stop Dose Admin Lactated Ringer's 1,000 mls @ 75 mls/hr 06/22/23 05:30 06/22/23 06:03 Lr IV 07/22/23 05:29 75 mls/hr .[id number] SCOTT Administration Past Medical History Medical History Acid reflux Acute hypoxemic respiratory failure due to COVID-19 CAD (coronary artery disease) COVID-19 Diabetes Dyslipidemia Enlarged prostate [place] (hard of hearing) HTN (hypertension) BORDERLINE Presence of drug coated stent in LAD coronary artery PT NOT SURE IF DRUG COATED Past Family History Family History Other Coronary heart disease Past Surgical History Surgical History History of back surgery History of cataract surgery History of colonoscopy History of heart artery stent X1 - [facility] History of hernia repair History of repair of rotator cuff PT NOT SURE History of total right knee replacement X2 S/P lumbar laminectomy Social History Smoking Status: Never smoker Do You Dip or Chew Tobacco: No Hx Alcohol Use: No Hx Substance Use: No substance use type: does not use Physical Exam Vital Signs Last Vital Signs Temp 36.4 C L 06/22/23 01:24 Pulse 88 06/22/23 07:30 Resp 21 06/22/23 07:30 BP 132/90 06/22/23 07:30 Pulse Ox 93 06/22/23 07:30 O2 Del Method Room Air 06/22/23 07:30 O2 Flow Rate 2 06/22/23 05:00 Testing Laboratory Results 06/22/23 01:52 06/22/23 01:52 Urine Color Dark Yellow 06/22/23 01:30 Urine Appearance Clear (Clear) 06/22/23 01:30 Urine pH 5.5 (4.5-7.5) 06/22/23 01:30 Ur Specific [place] 1.026 (1.000-1.030) 06/22/23 01:30 Urine Protein 1+ (Negative) H 06/22/23 01:30 Urine Glucose (UA) 2+ (Negative) H 06/22/23 01:30 Urine Ketones Trace (Negative) H 06/22/23 01:30 Urine Nitrite Negative (Negative) 06/22/23 01:30 Ur Leukocyte Esterase Negative (Negative) 06/22/23 01:30 Urine WBC (Auto) 1-5 /hpf (0-5) 06/22/23 01:30 Urine RBC (Auto) 0-4 /hpf (0-4) 06/22/23 01:30 U Hyaline Cast (Auto) 5-10 /lpf (0-5) H 06/22/23 01:30 U Epithel Cells (Auto) 20-30 /lpf (0-5) H 06/22/23 01:30 Urine Bacteria (Auto) Negative (Negative) 06/22/23 01:30 06/22/23 06/22/23 07:30 06:47 POC Glucose 244 H 227 H
[2023-06-22] MEDS ORDERED: ATROPINE SULFATE 0.1 MG/ML 10ML SYR IV PRN (08:02)
[2023-06-22] MEDS ORDERED: HYDROmorphone INJ 2 MG/ML SYR/VIAL IV PRN (08:02)
[2023-06-22] MEDS ORDERED: ePHEDrine sulfate 50 MG/ML AMP IV PRN (08:02)
[2023-06-22] MEDS ORDERED: PROMETHAZINE HCL 12.5 MG in SODIUM CHLORIDE 0.9% 50 ML IV PRN (08:02)
[2023-06-22] MEDS ORDERED: PHENYLEPHRINE 100MCG/ML 5ML SYR ONE (08:20)
[2023-06-22] MEDS ORDERED: SUGAMMADEX SODIUM 200 MG/2 ML VIAL IV ONE (08:21)
--- NOTE | 2023-06-22 08:55 | Operative Report ---
PG Post Operative Report Pre & Post Diagnosis Operation Date: 06/22/23 07:30 Pre-Op Diagnosis: Acute appendicitis Post-Op Diagnosis: Acute appendicitis I identified the patient and participated in the time-out.: Yes Procedure Operation Date: 06/22/23 07:30 Actual Procedures p Laparoscopic Appendectomy(Not Applicable) - Juan David Oviedo DO, VINAY Surgeon Juan David Oviedo DO, FACS Glass Vial Filler Yaiml Erickson Estimated Blood Loss 5 Findings Consistent with Post-Op Diagnosis Acute, nonperforated appendicitis. Specimens Appendix Anesthesia Type General Complications none Disposition Accompanied Patient To Recovery: No Disposition: Recovery Room Indications 77-year-old male presented with signs symptoms of acute appendicitis confirmed by CT, plan for laparoscopic appendectomy. The risks of the procedure were discussed, all questions were answered, and the patient agreed to proceed with surgery as planned. Description of Procedure The patient was properly identified, consented, and taken to the operating room where he was placed in the supine position. General endotracheal anesthesia was induced. SCDs and a safety belt were placed. Preoperative antibiotics were administered. A Bowen catheter was not placed. The patient's abdomen was prepped and draped in the standard sterile fashion. Surgical timeout was performed and all parties were in agreement that this was the correct patient and procedure to be performed and we continued as planned. An incision was made superior and to the left of the umbilicus. The Veress needle was inserted and saline drop test confirmed entry into the abdomen. The abdomen was insufflated with carbon dioxide which the patient tolerated without incident. The abdomen was then entered using a 5 mm 30 degree scope and a 5 mm port in the Optiview technique. The introducer was removed and the camera reinserted. There was no damage from initial trocar or Veress needle placement was noted, no gross abnormalities were noted within the 4 quadrants the abdomen. A 12 mm port was placed in the left lower quadrant with care not to damage the epigastric vessels, and a 5 mm port was placed in the suprapubic midline with care not to damage the bladder. Some adhesed omentum to his prior umbilical hernia repair was taken down with blunt dissection. The patient was placed in Trendelenburg position and rotated towards the left. The small bowel was swept away from the right lower quadrant. The cecum was grasped with an atraumatic grasper exposing the appendix. The appendix was m ildly inflamed and there was no evidence of perforation. There some reactive fluid in the right lower quadrant. A window was created between the base of the appendix and the mesoappendix. The appendiceal base was slightly thickened and inflamed. The cecum appeared healthy. A purple loaded endoscopic stapler was then used to divide the appendix at its base. The Sonicision was then used to divide the mesoappendix. Hemostasis was good. The appendix was placed in an Endo Catch bag and removed through the umbilical port site. The right lower quadrant and pelvis was irrigated and hemostasis was found to be good. The left lower quadrant 12 mm port site was then closed with [id number] 0 Vicryl suture utilizing the Horace-Nanette device. 5 mm trochars were removed under direct visualization and the abdomen was allowed to collapse. The wound was irrigated, and the skin of all ports was closed with 4-0 Monocryl subcuticular sutures. Dermabond was placed over the wounds. The patient was extubated in the operating room and taken to the PACU where he recovered without apparent incident. All sponge, instrument and needle counts were correct at the conclusion of the procedure. The patient tolerated the procedure well. The physician's buyer assistant was present and scrubbed for the entire the case. He was critical in positioning the patient, prepping and draping, retraction and exposure, driving the laparoscope, removal of the appendix, closure the incisions, placement of the dressings. I attest to the content of the Intraoperative Record and any orders documented therein. Any exceptions are noted below.
[2023-06-22] MEDS ORDERED: METOPROLOL SUCC 50MG EXT REL TAB PO SCH ×2 (09:00→21:00)
[2023-06-22] MEDS ORDERED: IPRATROPIUM BROMIDE NASAL SPRAY 0.06% 15ML NAE SCH (09:00)
[2023-06-22] MEDS ORDERED: TAMSULOSIN HCL 0.4 MG CAP PO SCH (09:00)
--- NOTE | 2023-06-22 10:13 | Anesthesiology Progress Note ---
Date of Service June 22, 2023 Anesthesia Post Procedure Vital Signs Vital Signs: Temp Pulse Pulse Resp BP BP Pulse Ox 06/22/23 09:25 94 H 20 146/91 H 95 06/22/23 09:15 96 H 16 143/86 H 98 06/22/23 09:05 36.2 C L 100 H 24 165/94 H 97 06/22/23 07:30 88 21 132/90 93 06/22/23 07:00 88 22 136/78 96 06/22/23 05:00 94 H 23 97 06/22/23 04:51 98 H 06/22/23 04:00 90 22 98 06/22/23 04:00 146/81 H 06/22/23 03:30 87 24 97 06/22/23 03:30 146/92 H 06/22/23 03:00 89 24 87 L 06/22/23 03:00 133/80 06/22/23 02:55 89 26 H 95 06/22/23 03:17 87 L 06/22/23 03:05 89 06/22/23 01:37 92 06/22/23 01:24 36.4 C L 82 18 143/86 H 94 O2 Del Method O2 Flow Rate 06/22/23 09:25 Nasal Cannula 2 06/22/23 09:15 Oxymask 4 06/22/23 09:05 Oxymask 6 06/22/23 07:30 Room Air 06/22/23 07:00 Room Air 06/22/23 05:00 2 06/22/23 04:51 06/22/23 04:00 2 06/22/23 04:00 06/22/23 03:30 2 06/22/23 03:30 06/22/23 03:00 0 06/22/23 03:00 06/22/23 02:55 06/22/23 03:17 Room Air 0 06/22/23 03:05 06/22/23 01:37 Room Air 06/22/23 01:24 Room Air Pain Intensity Abdomen: Pain Intensity: 10 Transfer of Care Handoff Completed per policy Notes Mental Status: alert / awake / arousable and participated in evaluation Patient Amnestic to Procedure: Yes Nausea / Vomiting: adequately controlled Pain: adequately controlled Airway Patency, RR, SpO2: stable & adequate BP & HR: stable & adequate Hydration State: stable & adequate Anesthetic Complications: no major complications apparent
[2023-06-22] MEDS: fentaNYL citrate PF 100 MCG/2 ML VIAL IV PRN ×2 (10:15→10:32)
--- NOTE | 2023-06-22 10:50 | Electrocardiogram Report ---
Test Reason : Blood Pressure : / mmHG Vent. Rate : 093 BPM Atrial Rate : 093 BPM P-R Int : 144 ms QRS Dur : 126 ms QT Int : 358 ms P-R-T Axes : 046 023 015 degrees QTc Int : 445 ms Normal sinus rhythm Right bundle branch block Nonspecific T wave abnormality Abnormal ECG When compared with ECG of 06-OCT-2022 05:25, Vent. rate has increased BY 33 BPM T wave inversion now evident in Anterior leads Confirmed by Mikie Lindsay ([id number]) on 06/22/2023 10:49:45 AM Referred By: REFERRED SELF Confirmed By:Mikie Lindsay
[2023-06-22] MEDS ORDERED: INSULIN ASPART PER UNIT CHARGE SC SCH ×2 (12:00→16:30)
[2023-06-22] MEDS ORDERED: PIPERACILLIN/TAZOBACTAM 4.5 GM in DEXTROSE 5% 100 ML IV SCH (13:00)
[2023-06-22] MEDS ORDERED: FAMOTIDINE 20 MG in SYRINGE 3 ML IV SCH (13:00)
--- NOTE | 2023-06-22 13:43 | Communication Note ---
Date of Service: June 22, 2023 Patient was seen as a part of medical consult after laparoscopic appendectomy. Patient is alert and awake and oriented and moving around per nurses. Patient is tolerating diet. Patient has already been discharged by surgery. His labs looks fairly normal and consistent with his acute stress of surgery. Antiplatelets to be resumed as soon as bleeding risks deemed minimal per surgery, per Sx recs. Antibiotics decision per surgery. Patient advised to hold metformin for 2 days after surgery and continue rest of the diabetic medications as prior. Patient is stable from medical standpoint.
[2023-06-22] MEDS: METOPROLOL TARTRATE 1 MG/ML VIAL IV SCH ×2 (13:44→13:45)
[2023-06-22] MEDS ORDERED: INSULIN ASPART PER UNIT CHARGE SC ONE (14:45)
[2023-06-22] MEDS ORDERED: ATORVASTATIN 40 MG TAB PO SCH (21:00)
== END 2023-06-22 16:10 | disposition home or self-care (01) ==
LOC: ED 01:17 → 3N 07:45 → OR 07:45